=== PATIENT | male | born 1970 | race Caucasian/White ===

== ENCOUNTER 2019-10-04 17:28 | Emergency (ER) | payer OTHER, SELFPAY ==
--- NOTE | ~2019-10-04 | US_ITS ---
EXAMINATION: US venous doppler LE RT DATE: 10/04/2019 18:29 INDICATION: Left lower limb swelling TECHNIQUE: Castellon scale images without and with compression and Doppler images of the left lower extrem ity veins were obtained. COMPARISON: None FINDINGS: There is thrombosis of the left popliteal vein, peroneal trunk, and posterior tibial veins. The left common femoral vein, profunda femoral vein, femoral vein, and greater saphenous vein are pa tent. IMPRESSION: 1. . Deep venous thrombosis involving the left popliteal, posterior tibial, and peroneal veins. These findings were discussed with Radha Moore PA-C in the Emergency Department at 1837 hours on 10/03. Reviewed, dictated and finalized at location A. IMPRESSION: 1. . Deep venous thrombosis involving the left popliteal, posterior tibial, and peroneal veins. These findings were discussed with Radha Moore PA-C in [facility] Emergency Department at 1837 hours on 10/04/2019.
[2019-10-04 17:36] VITALS: BP 176/108; PULSE 88; RESP 18; TEMP 36.6; O2SAT 100
--- NOTE | 2019-10-04 17:46 | ED.LOWEXIN ---
HPI - Extremity Injury (Lower) General Chief Complaint: Extremity Injury, Lower Stated Complaint: leg swelling Time Seen by Provider: 10/04/19 17:36 Source: patient Mode of arrival: ambulatory Limitations: no limitations History of Present Illness HPI Narrative: This is a 48-year-old male that presents the emergency department for right calf pain x2 weeks. Reports swelling over the last couple of days. Denies fever, chest pain, shortness of breath, recent travel or surgery, or history of blood clots. Related Data Allergies Allergy/AdvReac Type Severity Reaction Status Date / Time CLOPIDOGREL BISULFATE Allergy Unknown Uncoded 09/27/19 09:41 Review of Systems Review of Systems: Narrative: CONSTITUTIONAL: Denies fever CARDIOVASCULAR: Reports edema. Denies chest pain RESPIRATORY: Denies dyspnea. MUSCULOSKELETAL: Reports myalgia. All systems reviewed & are unremarkable except as noted in HPI and below PMFSH Social History Social History (System 09/27/19 @ 09:41 by Steffi Biggs) Smoking status: Never smoker Alcohol intake: current Exam Narrative: Exam Narrative: GENERAL: Well-appearing, well-nourished, and in no acute distress. HEAD: Normocephalic, atraumatic. EYES: EOMI. EXTREMITIES: Normal range of motion. Mild edema to the right calf and into the foot. Normal DP pulses. Normal sensation SKIN: Warm, dry, no rash. NEURO: No focal deficits. Alert and oriented x3. PSYCH: Normal mood and affect Course Vital Signs Vital signs: Vital Signs Temperature 97.8 F 10/04/19 17:36 Pulse Rate 88 10/04/19 17:36 Respiratory Rate 18 10/04/19 17:36 Blood Pressure 176/108 H 10/04/19 17:36 Pulse Oximetry 100 10/04/19 17:36 Temperature 97.8 F 10/04/19 17:36 Pulse Rate 61 10/04/19 19:07 Respiratory Rate 18 10/04/19 19:07 Blood Pressure 159/111 H 10/04/19 19:07 Pulse Oximetry 100 10/04/19 19:07 MDM - Extremity Injury (Lower) MDM Narrative Medical decision making narrative: Patient presents to the emergency department for right lower extremity swelling and pain. Patient is afebrile and nontoxic-appearing. Blood pressure elevated to 150s-170s/100s while in the ED. Otherwise vitals are normal. CBC and metabolic panel without acute changes. Venous doppler of the right lower extremity shows a DVT in the popliteal, posterior tibial and peroneal veins. Patient denies any chest pain or shortness of breath. Oxygen saturation has remained normal on room air. Patient updated on case findings. Spoke with patient's primary about work-up will follow-up in clinic. Patient will be started on Xarelto. Patient is stable and felt appropriate for further outpatient evaluation. He was given warnings to return to the ER Lab Data Attestation: I reviewed the patient's lab results. Result diagrams: 10/04/19 18:28 10/04/19 18:28 Labs: Lab Results 10/04/19 10/04/19 10/04/19 Range/Units 18:28 18:28 18:28 WBC 8.1 (4.5-10.0) K/mm3 RBC 5.41 (4.6-6.20) M/mm3 Hgb 15.7 (14.0-18.0) g/dL Hct 46.4 (42.0-52.0) % MCV 85.8 (80-100) fl MCH 29.0 (26-34) pg MCHC 33.8 (32-36) g/dl RDW 12.2 (11.5-14.5) % Plt Count 374 (150-375) k/mm3 MPV 9.6 (7.4-10.4) fl Immature Gran % (Auto) 0.2 (0-0.5) % Neut % (Auto) 72.9 (45.5-73.1) % Lymph % (Auto) 16.6 L (18.3-44.2) % [place] % (Auto) 7.1 (2.6-8.5) % Eos % (Auto) 2.6 (0-4.4) % Baso % (Auto) 0.6 (0.2-1.2) % Lymph # (Auto) 1.35 (0.9-3.2) K/mm3 [place] # (Auto) 0.6 (0.1-0.6) K/mm3 Eos # (Auto) 0.2 (0-0.3) K/mm3 Baso # (Auto) 0.1 (0.0-0.1) K/mm3 Abs Immat Gran (auto) 0.02 (0.00-0.031) K/mm3 Absolute Neuts (auto) 5.9 (1.3-6.7) K/mm3 Absolute Nucleated RBC 0.0 (0.0-0.012) K/mm3 Nucleated RBC % 0.0 (0.0-0.2) % PT 12.6 (11.1-14.7) Seconds INR 1.0 APTT 27.1 (22.3-36.8) SECONDS Sodium 136 L (137-145) mmol/L [place]
--- NOTE | 2019-10-04 18:16 | PC.NURSE ---
Patient taken to US prior to blood draw attempt, labs will be draw when patient returns to room
[2019-10-04 18:38] LABS: Basophils Absolute Auto 0.1 K/mm3 (0.0-0.1); Basophils Percent Auto 0.6 % (0.2-1.2); Eosinophils Absolute Auto 0.2 K/mm3 (0-0.3); Eosinophils Percent Auto 2.6 % (0-4.4); Hematocrit 46.4 % (42.0-52.0); Hemoglobin 15.7 g/dL (14.0-18.0); Immature Granulocyte Absolute 0.02 K/mm3 (0.00-0.031); Immature Granulocyte Percent A 0.2 % (0-0.5); Lymphocytes Absolute Auto 1.35 K/mm3 (0.9-3.2); Lymphocytes Percent Auto 16.6 % (18.3-44.2); Mean Corpuscular HGB Conc 33.8 g/dl (32-36); Mean Corpuscular Volume 85.8 fl (80-100); Mean Platelet Volume 9.6 fl (7.4-10.4); Monocytes Absolute Auto 0.6 K/mm3 (0.1-0.6); Monocytes Percent Auto 7.1 % (2.6-8.5); Neutrophils Absolute Auto 5.9 K/mm3 (1.3-6.7); Neutrophils Percent Auto 72.9 % (45.5-73.1); Platelet Count Result 374 k/mm3 (150-375); Red Blood Count 5.41 M/mm3 (4.6-6.20); Red Cell Distribution Width 12.2 % (11.5-14.5); White Blood Count 8.1 K/mm3 (4.5-10.0)
[2019-10-04 18:49] LABS: Blood Urea Nitrogen 12 mg/dL (9-20); Carbon Dioxide 34 mmol/L (22-30); Chloride 100 mmol/L (98-107); Estimated CRCL calculation 73 ml/min; Estimated Glomerular Filt Rate > 60; Glucose 110 mg/dL (75-110); Partial Thromboplastin Time 27.1 SECONDS (22.3-36.8); Potassium 4.1 mmol/L (3.4-5.0); Prothrombin Time 12.6 Seconds (11.1-14.7); Sodium 136 mmol/L (137-145)
[2019-10-04 18:58] LABS: NT Pro B Type Natriuretic Pept 189 PG/ML (5-100)
[2019-10-04 19:07] VITALS: BP 159/111; PULSE 61; RESP 18; O2SAT 100
[2019-10-04] MEDS: RIVAROXABAN 15 MG TABLET PO (20:00)
[2019-10-04 20:02] VITALS: BP 160/107; PULSE 76; RESP 18; O2SAT 100
== END 2019-10-04 20:03 | disposition home or self-care (01) ==
PROVIDERS: Physician Assistant; Emergency Provider Family Medicine; PCP Emergency Medicine
DX: I82.431 Acute embolism and thrombosis of right popliteal vein (principal)
CPT/HCPCS: 36415; 80048; 83880; 85025; 85610; 85730; 93971; 99284; A9270

== ENCOUNTER 2019-10-09 09:45 | Outpatient (CLI) | payer OTHER, SELFPAY ==
[2019-10-09 10:15] LABS: Prothrombin Time 13.2 Seconds (11.1-14.7)
== END 2019-10-09 09:46 | disposition home or self-care (01) ==
PROVIDERS: PCP Emergency Medicine; Visit Provider Emergency Medicine
DX: I82.431 Acute embolism and thrombosis of right popliteal vein (principal)
CPT/HCPCS: 36415; 85610

== ENCOUNTER 2019-10-16 07:09 | Outpatient (CLI) | payer OTHER, SELFPAY ==
[2019-10-16 07:56] LABS: INR 1.1; Prothrombin Time 13.8 Seconds (11.1-14.7)
== END 2019-10-16 07:10 | disposition home or self-care (01) ==
PROVIDERS: PCP Emergency Medicine; Visit Provider Emergency Medicine
DX: I82.431 Acute embolism and thrombosis of right popliteal vein (principal)
CPT/HCPCS: 36415; 85610

== ENCOUNTER 2019-10-16 15:46 | Observation (INO) | payer OTHER, SELFPAY ==
--- NOTE | ~2019-10-16 | CT_ITS ---
EXAMINATION: CTA chest PE protocol DATE: 10/16/2019 16:52 CDT INDICATION: Recent DVT. Chest pain. TECHNIQUE: Computed tomographic angiography (CTA) of the chest was performed with 100 mL Omnipaque-35 0 intravenous contrast. The dose-length product was 321.27 mGy-cm. Maximum intensity projection 3D-re constructions of the aorta and other arteries were constructed by the technologist on a separate work station. Automated exposure control and iterative reconstruction technique were employed. COMPARISON: Venous Doppler dated 10/04/2019. FINDINGS: Heart size normal. Study is technically adequate pulmonary embolism and right lower lobe se gmental and subsegmental pulmonary arteries. No evidence for aortic aneurysm or dissection. No signif icant pleural or pericardial effusion. Bibasilar dependent atelectasis. No endobronchial lesions. No focal airspace consolidation. No pneumothorax. Mild thoracic spondylosis. IMPRESSION: 1. Pulmonary embolism involving right lower lobe segmental and subsegmental pulmonary arteries, small thrombus burden. Dr. Koch discussed with Dr. Mansoor De Paz at 10/16/2019 16:56 CDT. Reviewed, dictated and finalized at location A. IMPRESSION: 1. Pulmonary embolism involving right lower lobe segmental and subsegmental pul monary arteries, small thrombus burden. Dr. Koch discussed with Dr. Mansoor De Paz at 10/16/2019 16:56 CDT.
--- NOTE | 2019-10-16 15:46 | ECG_ITS ---
Measurements Intervals Omega Rate: 76 P: 53 NE: 148 QRS: 3 QRSD: 96 T: 44 QT: 371 QTc: 419 Interpretive Statements SINUS RHYTHM DELAYED PRECORDIAL R/S TRANSITION BASELINE ARTIFACT- I, III, AVL, AVF, V6 BORDERLINE ECG Electronically Signed On 10-16-2019 16:12:19 CDT by Rosalio Hudson D.O.
[2019-10-16 15:48] VITALS: BP 156/106; PULSE 87; RESP 16; TEMP 36.6; O2SAT 100
[2019-10-16 16:01] LABS: Basophils Absolute Auto 0.1 K/mm3 (0.0-0.1); Basophils Percent Auto 0.8 % (0.2-1.2); Eosinophils Absolute Auto 0.2 K/mm3 (0-0.3); Eosinophils Percent Auto 2.8 % (0-4.4); Hematocrit 50.2 % (42.0-52.0); Hemoglobin 16.8 g/dL (14.0-18.0); Immature Granulocyte Absolute 0.03 K/mm3 (0.00-0.031); Immature Granulocyte Percent A 0.4 % (0-0.5); Lymphocytes Absolute Auto 1.92 K/mm3 (0.9-3.2); Lymphocytes Percent Auto 26.5 % (18.3-44.2); Mean Corpuscular HGB Conc 33.5 g/dl (32-36); Mean Corpuscular Hemoglobin 29.3 pg (26-34); Mean Corpuscular Volume 87.6 fl (80-100); Mean Platelet Volume 10.6 fl (7.4-10.4); Monocytes Absolute Auto 0.6 K/mm3 (0.1-0.6); Neutrophils Absolute Auto 4.5 K/mm3 (1.3-6.7); Neutrophils Percent Auto 61.5 % (45.5-73.1); Platelet Count Result 343 k/mm3 (150-375); Red Blood Count 5.73 M/mm3 (4.6-6.20); Red Cell Distribution Width 12.4 % (11.5-14.5); White Blood Count 7.3 K/mm3 (4.5-10.0)
[2019-10-16 16:10] LABS: INR 1.1; Prothrombin Time 13.6 Seconds (11.1-14.7)
[2019-10-16 16:13] LABS: D Dimer 0.51 ug/mL (<0.48)
[2019-10-16 16:14] LABS: Blood Urea Nitrogen 19 mg/dL (9-20); Calcium 9.6 mg/dL (8.4-10.2); Carbon Dioxide 31 mmol/L (22-30); Chloride 98 mmol/L (98-107); Estimated CRCL calculation 58 ml/min; Estimated Glomerular Filt Rate 54; Glucose 117 mg/dL (75-110); Sodium 138 mmol/L (137-145)
[2019-10-16 16:25] LABS: Troponin I < 0.012 ng/mL (0.000-0.034)
--- NOTE | 2019-10-16 17:30 | ED.SOB ---
HPI - SOB/Dyspnea General Chief Complaint: Extremity Problem,Nontraumatic Stated Complaint: chest pain and SOB Time Seen by Provider: 10/16/19 16:54 Source: patient Mode of arrival: ambulatory Limitations: no limitations History of Present Illness HPI Narrative: This is a 40-year-old male who presents emergency department for shortness of breath x1 week. Worse with exertion and at night. Was recently diagnosed with a DVT in his right lower extremity. Was started on warfarin for this and has had to have his dose increased due to non-therapeutic INR. Also reports some pleuritic chest pain. Denies fever or cough. Related Data Allergies Allergy/AdvReac Type Severity Reaction Status Date / Time clopidogrel Allergy Unknown Verified 10/16/19 18:16 CLOPIDOGREL BISULFATE Allergy Unknown Uncoded 10/16/19 18:16 Review of Systems Review of Systems: Narrative: CONSTITUTIONAL: Denies feve CARDIOVASCULAR: Reports chest pain, and edema. RESPIRATORY: Reports dyspnea. Denies cough All systems reviewed & are unremarkable except as noted in HPI and below PMFSH Social History Social History Smoking status: Never smoker Alcohol intake: current Exam Narrative: Exam Narrative: GENERAL: Well-appearing, well-nourished, and in no acute distress. HEAD: Normocephalic, atraumatic. EYES: EOMI. CHEST: Clear to auscultation. No respiratory distress. No wheezes rales or rhonchi HEART: Regular rate and rhythm. No murmur heard. Normal peripheral pulses. EXTREMITIES: Normal range of motion. No edema. SKIN: Warm, dry, no rash. NEURO: No focal deficits. Alert and oriented x3. PSYCH: Normal mood and affect Course Consultations Consultation #1: Spoke with hospitalist about patient and work-up who accepts admission Date: 10/16/19 Time: 18:29 Vital Signs Vital signs: Vital Signs Temperature 97.8 F 10/16/19 15:48 Pulse Rate 87 10/16/19 15:48 Respiratory Rate 16 10/16/19 15:48 Blood Pressure 156/106 H 10/16/19 15:48 Pulse Oximetry 100 10/16/19 15:48 Temperature 97.8 F 10/16/19 15:48 Pulse Rate 87 10/16/19 15:48 Respiratory Rate 16 10/16/19 15:48 Blood Pressure 156/106 H 10/16/19 15:48 Pulse Oximetry 100 10/16/19 15:48 MDM - SOB/Dyspnea MDM Narrative Medical decision making narrative: Patient presents the emergency department for shortness of breath x1 week. He is afebrile and nontoxic-appearing. Oxygen saturation has remained normal on room air. Patient recently diagnosed with right lower extremity DVT. INR has been subtherapeutic. CBC without acute changes. Metabolic panel with mild elevation in creatinine from baseline. Baseline appears to be closer to 1.1 or 1.2. He is 1.4 today. GFR also mildly decreased to 54. Troponin is not elevated. CTA of the chest shows pulmonary embolism involving the right lower lobe segmental and subsegmental pulmonary arteries with small thrombus burden. Patient will be admitted for further treatment and observation. Given a dose of Lovenox in the ED. Will be started on subcutaneous Lovenox inpatient. Spoke with hospitalist about patient and work-up who accepts admission Lab Data Attestation: I reviewed the patient's lab results. Result diagrams: 10/16/19 15:52 10/16/19 15:52 Labs: Lab Results 10/16/19 10/16/19 10/16/19 Range/Units 15:52 15:52 15:52 WBC 7.3 (4.5-10.0) K/mm3 RBC 5.73 (4.6-6.20) M/mm3 Hgb 16.8 (14.0-18.0) g/dL Hct 50.2 (42.0-52.0) % MCV 87.6 (80-100) fl MCH 29.3 (26-34) pg MCHC 33.5 (32-36) g/dl RDW 12.4 (11.5-14.5) % Plt Count 343 (150-375) k/mm3 MPV 10.6 H (7.4-10.4) fl Immature Gran % (Auto) 0.4 (0-0.5) % Neut % (Auto) 61.5 (45.5-73.1) % Lymph % (Auto) 26.5 (18.3-44.2) % [place] % (Auto) 8.0 (2.6-8.5) % Eos % (Auto) 2.8 (0-4.4) % Baso % (Auto) 0.8 (0.2-1.2) % Lymph # (Auto) 1.92
[2019-10-16] MEDS: ENOXAPARIN 100 MG/ML SYRINGE 85 MG SUB-Q (18:16)
[2019-10-16] MEDS: SODIUM CHLORIDE 0.9% IV 500 ML 999 ML IV CONT (18:50)
[2019-10-16 18:53] VITALS: BP 150/113; PULSE 76; RESP 16; O2SAT 100
[2019-10-16 19:40] VITALS: BP 150/93; PULSE 64; RESP 18; TEMP 36.7; O2SAT 97; BMI 27.1
--- NOTE | 2019-10-16 19:56 | ADMGEN ---
This patient, Dakota Richardson, was admitted to 3 [facility] Surg Room 302-01. Patient/family oriented to hospital policies and general routines including ID bracelet, bed and alarms, visiting hours, pain management, procedures, bathroom and other care routines, personal items, smoking policy, room service/diet, and visiting hours. Valuables list has been completed. Information on how to activate the Rapid Response Team has been discussed. Patient/Family are encouraged to report perceived risks to care and to ask questions if they do not understand what they are told or what they should do.
[2019-10-16 22:00] VITALS: BP 143/89; PULSE 60; RESP 18; TEMP 36.7; O2SAT 100
--- NOTE | 2019-10-16 22:30 | PM.IMHP ---
H&P: HPI History of Present Illness Chief complaint: PE Narrative: Dakota Richardson is a 48 year old male who was seen in the emergency room on 10/04/2019 and found to have a DVT in his right calf the patient was prescribed Xarelto and was told to wear compression stockings. He was told to elevate his leg as well. And follow-up with his primary care doctor. The patient stated that he was also short of breath at that time and having difficulty sleeping due to the shortness of breath. The patient was not able to get Xarelto and had to do Coumadin. His INR was not therapeutic and the patient had to increase his Coumadin. Patient said that he is very short of breath with exertion and when he is sleeping at night he cannot lie flat and has to sleep with a fan because he is so short of breath. The patient returned back to the emergency room due to his shortness of breath. He states he could not take a deep breath. And he has pain in the right lower quadrant CT was read as pulmonary embolism involving right lower lobe segmental and subsegmental pulmonary arteries small thrombus burden. Patient was given subcu Lovenox. And IV fluids in the emergency room his D-dimer was found to be 0.51. And his INR was only 1.1. Date of service 10/16/2019 Review of Systems Review of Systems: All systems reviewed & are unremarkable except as noted in HPI and below Constitutional: Constitutional: Reports as per HPI and Reports no additional constitutional complaints Eyes: Eyes: Reports as per HPI and Reports no additional eye complaints ENT: Reports system reviewed and no additional complaints, except as documented and Reports Normal hearing present Cardiovascular: Cardiovascular: Reports no additional cardiovascular complaints Respiratory: Respiratory: Reports no additional respiratory complaints and Reports no additional respiratory complaints Gastrointestinal: Gastrointestinal: Reports as per HPI and Reports no additional gastrointestinal complaints Musculoskeletal: Musculoskeletal: Reports no additional musculoskeletal complaints Integumentary/Breasts: Skin/Breast: Reports system reviewed and no additional complaints, except as docu and Reports as per HPI Neurologic: Reports system reviewed and no additional complaints, except as documented, Reports as per HPI and Reports Normal hearing present Psychiatric: Psychiatric: Reports no additional psychiatric complaints and Reports as per HPI Endocrine: Endocrine: Reports no additional endocrine complaints Hematologic/Lymphatic: Hematologic/Lymphatic: Reports no additional hematologic/lymphatic complaints Allergic/Immunologic: Allergic/Immunologic: Reports no additional allergic/immunologic complaints [facility] Past Medical History Medical History (Updated 10/16/19 @ 22:35 by Danielle Santoyo NP) Hypertension Vitamin D deficiency disease Surgical History Surgical History (Updated 10/16/19 @ 22:35 by Danielle Santoyo NP) History of tonsillectomy Hx of cholecystectomy Family History Family History (Updated 10/16/19 @ 22:38 by Danielle Santoyo NP) Sibling DVT (deep venous thrombosis) Father Diabetes mellitus Other Family history of malignant neoplasm of skin Social History Social History Smoking status: Never smoker Alcohol intake: current Drinks per week: 18 Substance use: never Spiritual care concerns: No Meds Home Medications and Allergies Home Medications Medication Instructions Recorded Confirmed Type cholecalciferol (vitamin D3) 50 2,000 unit PO DAILY #30 tablet 05/24/19 10/16/19 Rx mcg (2,000 unit) tablet warfarin 5 mg tablet 5 mg PO DAILY #30 tablet 10/07/19 10/16/19 Rx hydrochlorothiazide 25 mg tablet 25 mg PO DAILY #30 tablet 10/14/19 10/16/19 Rx amlodipine 5 mg PO DAILY 10/16/19 10/16/19 History losartan 100 mg PO DAILY 10/16/19 10/16/19 History Allergies Allergy/AdvReac Type Severity
[2019-10-17] VITALS: PULSE 52
--- NOTE | 2019-10-17 | ECHO_ITS ---
Patient Info Name: Dakota Richardson Age: 48 years : 1970 Gender: Male Ht: 69 in Wt: 183 lbs BSA: 2.03 m2 HR: 64 bpm BP: 142 / 99 mmHg Technical Quality: Good Exam Date: 10/17/2019 11:33 AM Exam Location: [facility] Pulmonary Exam Room: [facility] [place] Patient Status: Inpatient Admit Date: 10/16/2019 Staff Ordering Physician: Danielle Santoyo NP Safety And Security Manager: Nancy Gusman RDCS Attending Provider: Florecita Hoffman PA-C Referring Physician: Yarelis ABREU; Exam Type: CA echo doppler color flow Study Info Indications - PE DVT SOB Complete two-dimensional, color flow and Doppler transthoracic echocardiogram is performed with contrast to opacify the left ventricle and to improve the deliniation of the left ventricle endocardial borders. Summary 1. Left ventricular chamber dimension is mildly enlarged. 2. Left ventricular systolic function is mildly reduced, estimated at 45-50%. 3. Left ventricular septal wall motion is abnormal with septal motion related to bundle branch block. 4. Lateral wall is hypokinetic. 5. The left ventricular diastolic function is grade I diastolic dysfunction. 6. E/e' 8 is minimally elevated. 7. There is mild mitral valve regurgitation. 8. There is mild tricuspid valve regurgitation. 9. No pulmonary hypertension, estimated pulmonary arterial systolic pressure is 24 mmHg. Left Ventricle Lateral wall is hypokinetic. E/e' 8 is minimally elevated. Left ventricular chamber dimension is mildly enlarged. Left ventricular systolic function is mildly reduced, estimated at 45-50%. Left ventricular septal wall motion is abnormal with septal motion related to bundle branch block. The left ventricular diastolic function is grade I diastolic dysfunction. Right Ventricle Right ventricular chamber dimension is normal. Right ventricular systolic function is normal. Left Atria Left atrial chamber dimension is normal. Right Atria Right atrial chamber dimension is normal. Aortic Valve The aortic valve is trileaflet. There is no aortic valve stenosis. There is no aortic valve regurgitation. Pulmonic Valve There is trace pulmonic regurgitation. Mitral Valve There is no mitral valve stenosis. There is mild mitral valve regurgitation. Tricuspid Valve There is mild tricuspid valve regurgitation. No pulmonary hypertension, estimated pulmonary arterial systolic pressure is 24 mmHg. Pericardium/Pleural There is no pericardial effusion. Inferior Vena Cava Normal inferior vena cava with >50% collapse upon inspiration consistent with normal right atrial pressure, 5 mmHg. Aorta The aortic root size at the sinus of Valsalva is normal. Left Ventricular Outflow Tract Name Value Normal LVOT 2D LVOT Diameter 2.1 cm LVOT Doppler LVOT Peak Gradient 4 mmHg LVOT Mean Gradient 2 mmHg LVOT VTI 18 cm LVOT VTI/AV VTI Ratio 0.9 LVOT Stroke Volume 61 ml LVOT CO 13.3 l/min LVOT CI
[2019-10-17 04:00] VITALS: PULSE 55
[2019-10-17] MEDS: ENOXAPARIN 100 MG/ML SYRINGE 85 MG SUB-Q (05:35)
[2019-10-17 06:00] VITALS: BP 142/99; PULSE 64; RESP 18; TEMP 36.4; O2SAT 99
[2019-10-17 06:21] LABS: Basophils Percent Auto 0.7 % (0.2-1.2); Eosinophils Absolute Auto 0.2 K/mm3 (0-0.3); Eosinophils Percent Auto 2.5 % (0-4.4); Hematocrit 49.2 % (42.0-52.0); Hemoglobin 16.4 g/dL (14.0-18.0); Immature Granulocyte Absolute 0.01 K/mm3 (0.00-0.031); Immature Granulocyte Percent A 0.2 % (0-0.5); Lymphocytes Absolute Auto 1.87 K/mm3 (0.9-3.2); Lymphocytes Percent Auto 31.7 % (18.3-44.2); Mean Corpuscular HGB Conc 33.3 g/dl (32-36); Mean Corpuscular Hemoglobin 29.3 pg (26-34); Mean Platelet Volume 10.3 fl (7.4-10.4); Monocytes Absolute Auto 0.5 K/mm3 (0.1-0.6); Neutrophils Absolute Auto 3.4 K/mm3 (1.3-6.7); Neutrophils Percent Auto 56.9 % (45.5-73.1); Platelet Count Result 293 k/mm3 (150-375); Red Blood Count 5.59 M/mm3 (4.6-6.20); Red Cell Distribution Width 12.5 % (11.5-14.5); White Blood Count 5.9 K/mm3 (4.5-10.0)
[2019-10-17 06:35] LABS: INR 1.3; Prothrombin Time 15.4 Seconds (11.1-14.7)
[2019-10-17 06:43] LABS: Alanine Aminotransferase 19 U/L (4-50); Albumin Level 4.4 g/dL (3.5-5.1); Alkaline Phosphatase 70 U/L (38-126); Aspartate Amino Transferase 25 U/L (17-59); Bilirubin,Total 0.6 mg/dL (0.2-1.3); Blood Urea Nitrogen 16 mg/dL (9-20); CRP < 0.5 mg/dL (<1.0); Calcium 9.3 mg/dL (8.4-10.2); Carbon Dioxide 32 mmol/L (22-30); Chloride 98 mmol/L (98-107); Estimated CRCL calculation 67 ml/min; Estimated Glomerular Filt Rate > 60; Glucose 102 mg/dL (75-110); Magnesium 2.1 mg/dL (1.6-2.3); Sodium 137 mmol/L (137-145)
[2019-10-17 08:00] VITALS: PULSE 68
[2019-10-17] MEDS: hydroCHLOROthiazide 25 MG TABLET PO (09:02)
[2019-10-17] MEDS: CHOLECALCIFEROL 1,000 UNIT TABLET 2000 UNITS PO (09:02)
[2019-10-17] MEDS: LOSARTAN POTASSIUM 100 MG TABLET PO (09:02)
[2019-10-17] MEDS: AMLODIPINE BESYLATE 5 MG TABLET PO (09:02)
[2019-10-17 12:00] VITALS: PULSE 73
[2019-10-17 14:00] VITALS: BP 130/80; PULSE 64; RESP 18; TEMP 36.4; O2SAT 100
--- NOTE | 2019-10-17 14:18 | PM.DS ---
DS: Admitting Diagnosis Admitting Diagnosis Admitting Diagnosis: Single subsegmental pulmonary embolism without acute cor pulmonale DS: Discharge Diagnosis Discharge Diagnosis (1) Pulmonary embolism: Qualifiers: Pulmonary embolism type: single subsegmental (without acute cor pulmonale) Qualified Code(s): I26.93 - Single subsegmental pulmonary embolism without acute cor pulmonale Code(s): I26.99 - Other pulmonary embolism without acute cor pulmonale Status: Acute Assessment and Plan: Acute pulmonary embolism found on CTA of chest upon arrival to the emergency room. Patient was started on Lovenox injections and continued on his Coumadin orally for anticoagulation. Echocardiogram showed no signs of right heart strain from pulmonary embolism. Patient is feeling much better at this time. His INR this morning was 1.3, which is improved with the increase in his Coumadin dose. He will be discharged on Lovenox 85 mg q.12 hours and continue taking Coumadin 10 mg daily Will have him recheck his INR on Monday and follow-up with his primary care provider on Monday or Monday. Will keep him off of work until he follows up with his primary care provider is cleared to return Patient understands and agrees the plan all questions answered (2) DVT of lower extremity (deep venous thrombosis): Qualifiers: Affected thrombotic vein of extremity: other lower extremity vein Chronicity: acute Laterality: left Qualified Code(s): I82.492 - Acute embolism and thrombosis of other specified deep vein of left lower extremity Code(s): I82.409 - Acute embolism and thrombosis of unspecified deep veins of unspecified lower extremity Status: Acute Assessment and Plan: Diagnosed 10/05/2019 and was on Coumadin which was not treating his DVT since he was subtherapeutic. See above under PE. (3) Systolic congestive heart failure: Code(s): I50.20 - Unspecified systolic (congestive) heart failure Status: Acute Assessment and Plan: Had an echo completed on the patient which found his EF is slightly reduced at 45-50%, with mild enlargement of his LV, Left ventricular septal wall motion is abnormal with septal motion related to bundle branch block and Lateral wall is hypokinetic. I called Dr. Hudson who read the patient's echocardiogram and informed him of his history. Dr. Hudson does not believe any of these heart changes are related to his underlying PE. He does not feel any medication adjustments are necessary at this time since his EF is only slightly reduced. He believes the patient should follow-up as an outpatient for further cardiac workup once his PE has resolved. Will have him call Dr. Hudson in follow-up in a few weeks for further evaluation. Patient's initial troponin on arrival to the ER was normal at less than 0.012 Informed the patient of these findings and he understands and agrees with the plan. Informed the patient that if his shortness of breath with exertion is not any better by Monday with his Lovenox treatment for PE that he needs follow-up with primary care provider in some of his dyspnea on exertion could be related to underlying coronary artery disease. (4) Hypertension: Qualifiers: Hypertension type: essential hypertension Qualified Code(s): I10 - Essential (primary) hypertension Code(s): I10 - Essential (primary) hypertension Status: Chronic Assessment and Plan: Blood pressures morning was 142/99 before taking his home medications. Continue with Norvasc, hydrochlorothiazide, Cozaar. Have him check his blood pressure daily and follow-up with primary care provider DS: Summary Hospital Course Reason for hospitalization: Patient is a 48-year-old man with a hi
[2019-10-22 12:52] LABS: Lipoprotein A 41 nmol/L (<75)
[2019-10-22 21:13] LABS: Hexagonal Phase Confirm Negative (Negative); Lupus dRVVT 1:1 Mix Interpreta Not Indicated; Lupus dRVVT Screen 29 sec (<=45); PTT-LA Screen 42 sec (<=40)
== END 2019-10-17 15:20 | disposition home or self-care (01) ==
LOC: ANHED 18:23 → ANH3MEDSUR 18:39
PROVIDERS: Nurse Practitioner; Admitting Provider Internal Medicine; Emergency Provider Family Medicine; PCP Emergency Medicine; Visit Provider Family Medicine
DX: I26.93 Single subsegmental thrombotic pulmonary embolism without acute cor pulmonale (principal); I82.491 Acute embolism and thrombosis of other specified deep vein of right lower extremity; I50.20 Unspecified systolic (congestive) heart failure; I11.0 Hypertensive heart disease with heart failure; Z79.01 Long term (current) use of anticoagulants
CPT/HCPCS: 36415; 71275; 80048; 80053; 81241; 81291; 83695; 83735; 84484; 85025; 85380; 85598; 85610; 85613; 85730; 86140; 93005; 93306; 96360; 96372; 99285; A9270; G0378; J1650; J7040; Q9967

== ENCOUNTER 2019-10-25 08:30 | Outpatient (CLI) | payer OTHER, SELFPAY ==
[2019-10-25 08:55] LABS: INR 1.6; Prothrombin Time 18.6 Seconds (11.1-14.7)
== END 2019-10-25 08:31 | disposition home or self-care (01) ==
PROVIDERS: PCP Emergency Medicine; Visit Provider Emergency Medicine
DX: I26.99 Other pulmonary embolism without acute cor pulmonale (principal); I82.409 Acute embolism and thrombosis of unspecified deep veins of unspecified lower extremity
CPT/HCPCS: 36415; 85610

== ENCOUNTER 2019-11-07 09:13 | Outpatient (CLI) | payer OTHER, SELFPAY ==
[2019-11-07 10:01] LABS: Cholesterol 240 mg/dL (0-200); HDL Direct 49 mg/dL; Triglycerides 139 mg/dL (<150)
[2019-11-07 10:12] LABS: LDL Cholesterol Direct 146 mg/dL
== END 2019-11-07 09:14 | disposition home or self-care (01) ==
PROVIDERS: PCP Emergency Medicine; Visit Provider Internal Medicine Cardiovascular Disease
DX: E78.5 Hyperlipidemia, unspecified (principal)
CPT/HCPCS: 36415; 80061

== ENCOUNTER 2019-11-07 11:58 | Outpatient (CLI) | payer OTHER, SELFPAY ==
[2019-11-12 05:11] LABS: Homocysteine 12.4 umol/L (<11.4)
== END 2019-11-07 11:59 | disposition home or self-care (01) ==
PROVIDERS: PCP Emergency Medicine; Visit Provider Internal Medicine Hematology & Oncology
DX: D68.69 Other thrombophilia (principal)
CPT/HCPCS: 36415; 83090

== ENCOUNTER 2019-11-10 20:35 | Emergency (ER) | payer OTHER, SELFPAY ==
--- NOTE | ~2019-11-10 | CT_ITS ---
EXAMINATION: CT BRAIN W/O DATE: 11/10/2019 20:51 INDICATION: Dizziness and weakness. TECHNIQUE: Computed tomography (CT) of the head was performed without intravenous contrast. The dose- length product was 605.33 mGy-cm. Automated exposure control and iterative reconstruction technique w ere employed. COMPARISON: CT dated 04/17/2014 FINDINGS: Normal brain parenchymal volume for age. Normal lezama-white differentiation. No acute intrac ranial hemorrhage, infarction, mass or mass effect. No ventriculomegaly or midline shift. Midline sagittal images demonstrate a normal corpus callosum, c raniovertebral junction and sella turcica. Basilar cisterns are patent. Paranasal sinuses and mastoids are pneumatized. No depressed skull fractures. IMPRESSION: 1. No acute intracranial abnormality. Reviewed, dictated and finalized at location A.
[2019-11-10 20:35] VITALS: BP 173/94; PULSE 78; RESP 20; TEMP 36.6; O2SAT 97
--- NOTE | 2019-11-10 20:38 | ED.WEAKNESS ---
HPI - Weakness General Chief complaint: Suspected CVA Stated complaint: EMS Arrival Time Seen by Provider: 11/10/19 20:40 Source: patient, EMS and RN notes reviewed Mode of arrival: EMS Limitations: no limitations History of Present Illness HPI Narrative: Patient states that he was at a neighbor's house and he only had 2 or 3 sips of a beer. He says that he is not drinking alcohol and 6 weeks because he has been on blood thinners. He then became dizzy and felt like he was weak on his left side. He does at the history of TIA, alcohol abuse. He was put on blood thinners for DVT in his right leg ache which then became a pulmonary embolism. He is currently on Coumadin. Currently denies any chest pain or shortness of breath. MD Complaint: focal weakness (left side) Onset (ago): minute(s) (35) Duration: constant Location: LUE and LLE Migration: none Severity: moderate Relieving factors: none Associated symptoms: denies other symptoms Related Data Home Medications Medication Instructions Recorded Confirmed amlodipine [Norvasc] 5 mg PO DAILY 10/16/19 11/10/19 losartan 100 mg PO DAILY 10/16/19 11/10/19 aspirin [Aspir-81] 81 mg PO DAILY 11/10/19 11/10/19 cholecalciferol (vitamin D3) [D3 2,000 unit PO DAILY 11/10/19 11/10/19 DOTS] Allergies Allergy/AdvReac Type Severity Reaction Status Date / Time clopidogrel Allergy Unknown Unknown Verified 11/07/19 08:26 CLOPIDOGREL BISULFATE Allergy Unknown Unknown Uncoded 11/07/19 08:26 [facility] Family History Family History Sibling DVT (deep venous thrombosis) Father Diabetes mellitus Other Family history of malignant neoplasm of skin Social History Social History Smoking status: Never smoker Alcohol intake: current Drinks per week: 18 Substance use: never Gender identity (if verbalized by the patient): Male Sexual Orientation (if Verbalized by the Patient): Straight or Heterosexual Spiritual care concerns: No Course Vital Signs Vital signs: Vital Signs Temperature 36.6 C 11/10/19 20:35 Pulse Rate 78 11/10/19 20:35 Respiratory Rate 20 11/10/19 20:35 Blood Pressure 173/94 H 11/10/19 20:35 Pulse Oximetry 97 11/10/19 20:35 Temperature 36.4 C 11/10/19 22:20 Pulse Rate 78 11/10/19 22:20 Respiratory Rate 18 11/10/19 22:20 Blood Pressure 140/72 11/10/19 22:20 Pulse Oximetry 98 11/10/19 22:20 MDM - Weakness Differential Diagnosis Differential diagnosis: Likely dehydration and other (CVA, TIA) Lab Data Attestation: I reviewed the patient's lab results. Result diagrams: 11/10/19 20:55 11/10/19 20:55 Labs: Lab Results 11/10/19 11/10/19 11/10/19 Range/Units 20:55 20:55 20:55 WBC 6.5 (4.8-10.8) K/mm3 RBC 5.25 (4.70-6.10) M/mm3 Hgb 15.2 (14.0-18.0) g/dL Hct 45.9 (40.0-54.0) % MCV 87.4 (78.0-102.0) fL MCH 29.0 (27.0-31.0) pg MCHC 33.1 (32.0-36.0) g/dL RDW 12.4 (11.6-14.4) % Plt Count 267 (150-420) K/mm3 MPV 10.4 (8.7-11.0) fl Immature Gran % (Auto) 0.3 H (0.0-0.0) % Neut % (Auto) 53.3 (50.0-70.0) % Lymph % (Auto) 35.8 (18.0-42.0) % [place] % (Auto) 7.3 (2.0-11.0) % Eos % (Auto) 2.5 (1.0-6.0) % Baso % (Auto) 0.8 (0.0-1.0) % Lymph # (Auto) 2.31 (1.10-4.50) K/mm3 [place] # (Auto) 0.47 (0.10-0.90) K/mm3 Eos # (Auto) 0.16 (0.02-0.50) K/mm3 Baso # (Auto) 0.05 (0.00-0.10) K/mm3 Abs Immat Gran (auto) 0.02 H (0.00-0.00) K/mm3 Absolute Neuts (auto) 3.5 (1.7-7.2) K/mm3 Absolute Nucleated RBC 0.00 (0.00-0.00) K/mm3 Nucleated RBC % 0.0 (0-0.0) % PT 30.4 H (9.64-11.0) Seconds INR 3.1 Sodium 136 L (137-145) mmol/L Potassium 3.6 (3.4-5.0) mmol/L Chloride 100 (98-107) mmol/L Carbon Dioxide 30 (21-32) mmol/L Anion Gap 9.6 (7-16) mmol/L BUN 13 (7
[2019-11-10 21:04] LABS: Basophils Absolute Auto 0.05 K/mm3 (0.00-0.10); Basophils Percent Auto 0.8 % (0.0-1.0); Eosinophils Absolute Auto 0.16 K/mm3 (0.02-0.50); Eosinophils Percent Auto 2.5 % (1.0-6.0); Hematocrit 45.9 % (40.0-54.0); Hemoglobin 15.2 g/dL (14.0-18.0); Immature Granulocyte Absolute 0.02 K/mm3 (0.00-0.00); Immature Granulocyte Percent A 0.3 % (0.0-0.0); Lymphocytes Absolute Auto 2.31 K/mm3 (1.10-4.50); Lymphocytes Percent Auto 35.8 % (18.0-42.0); Mean Corpuscular HGB Conc 33.1 g/dL (32.0-36.0); Mean Corpuscular Volume 87.4 fL (78.0-102.0); Mean Platelet Volume 10.4 fl (8.7-11.0); Monocytes Absolute Auto 0.47 K/mm3 (0.10-0.90); Monocytes Percent Auto 7.3 % (2.0-11.0); Neutrophils Absolute Auto 3.5 K/mm3 (1.7-7.2); Neutrophils Percent Auto 53.3 % (50.0-70.0); Platelet Count Result 267 K/mm3 (150-420); Red Blood Count 5.25 M/mm3 (4.70-6.10); Red Cell Distribution Width 12.4 % (11.6-14.4); White Blood Count 6.5 K/mm3 (4.8-10.8)
[2019-11-10 21:19] LABS: Alanine Aminotransferase 72 U/L (16-63); Albumin Level 4.2 g/dL (3.4-5.0); Alkaline Phosphatase 66 U/L (46-116); Aspartate Amino Transferase 23 U/L (15-37); Bilirubin,Total 0.4 mg/dL (0.00-1.00); Blood Urea Nitrogen 13 mg/dL (7-18); Calcium 9.1 mg/dL (8.5-10.1); Estimated CRCL calculation 56 ml/min; Estimated Glomerular Filt Rate 54; Glucose 99 mg/dL (70-99); INR 3.1; Prothrombin Time 30.4 Seconds (9.64-11.0); Total Protein 7.6 g/dL (6.4-8.2)
[2019-11-10 21:20] LABS: Carbon Dioxide 30 mmol/L (21-32)
[2019-11-10 21:21] LABS: Ethanol 110 mg/dL (0-6)
--- NOTE | 2019-11-10 21:30 | PC.NURSE ---
patient resting no pain. VSS. Family notified
[2019-11-10 21:36] VITALS: BP 140/88; PULSE 88; RESP 20; TEMP 36.2; O2SAT 98
--- NOTE | 2019-11-10 21:42 | PC.NURSE ---
tested reviewed, patient to be discharged, mother notified
[2019-11-10 21:51] VITALS: BP 150/72; PULSE 88; RESP 18
[2019-11-10 22:03] LABS: Anion Gap 9.6 mmol/L (7-16); Chloride 100 mmol/L (98-107); Osmolality Calculated 282 mOsm/kg (285-295); Potassium 3.6 mmol/L (3.4-5.0); Sodium 136 mmol/L (137-145)
[2019-11-10 22:20] VITALS: BP 140/72; PULSE 78; RESP 18; TEMP 36.4; O2SAT 98
--- NOTE | 2019-11-10 22:21 | PC.NURSE ---
IV D/C coban & dressing applied
== END 2019-11-10 22:20 | disposition home or self-care (01) ==
PROVIDERS: Emergency Provider Emergency Medicine
DX: R53.1 Weakness (principal); Z79.01 Long term (current) use of anticoagulants; Z79.899 Other long term (current) drug therapy
CPT/HCPCS: 36415; 70450; 80053; 80307; 85025; 85610; 99284

== ENCOUNTER 2019-11-15 06:35 | Outpatient (CLI) | payer OTHER, SELFPAY ==
--- NOTE | ~2019-11-15 | NM_ITS ---
EXAMINATION: NM shaun stress w perfusion DATE: 11/15/2019 09:02 INDICATION: Systolic congestive heart failure TECHNIQUE: Rest images were obtained following intravenous administration of 10.9 mCi Tc99m tetrofosm in (Myoview). The patient was infused intravenously with Lexiscan (Regadenoson). Then, 32.2 mCi Tc99m tetrofosmin (Myoview) was administered intravenously, and stress images were obtained. Data was chantell nstructed into short axis and horizontal and vertical long axis SPECT images. Gated SPECT images were also obtained. COMPARISON: None. FINDINGS: There is no definite reversible or fixed perfusion abnormality to suggest ischemia or infar ction. There is normal left ventricular chamber size, wall motion and ejection fraction. Left ventr icular ejection fraction measures 60%. IMPRESSION: 1. Normal myocardial perfusion at rest and during stress. 2. Left ventricular ejection fraction measuring 60%. Reviewed, dictated and finalized at location A.
--- NOTE | 2019-11-15 06:47 | EST_ITS ---
Patient Info Name: Dakota Richardson Age: 48 years : 1970 Gender: Male Ht: 69 in Wt: 196 lbs BSA: 2.10 m2 Exam Date: 11/15/2019 7:57 AM Exam Location: [facility] Stress Patient Status: Outpatient Admit Date: 11/15/2019 Staff Ordering Physician: Rosalio Hudson DO Attending Provider: Rosalio Hudson DO Exercise Technologist: Lisa Tamez RDCS Exercise Physician: Rosalio Hudson DO Exam Type: CA stress shaun w NM Study Info Indications I50.21 - Acute systolic (congestive) heart failure A regadenoson stress test was performed. Summary 1. 1. Negative lexiscan stress test for ischemic ST change by ECG criteria. 2. 2. Stable hemodynamics throughout the test. 3. 3. Nuclear scan to follow and will be reported separately. Please correlate with it. 4. 4. Patient informed of the above results. Protocol: Lexiscan Stress ECG Details Stage: REST Duration (min): 6 min : 13 sec HR (bpm): 53 SBP (mmHg): 133 DBP (mmHg): 100 Stage: REST Duration (min): 10 min : 21 sec HR (bpm): 62 SBP (mmHg): 133 DBP (mmHg): 100 Stage: STAGE 1 Duration (min): 1 min : 0 sec HR (bpm): 85 SBP (mmHg): 133 DBP (mmHg): 86 Stage: RECOVERY Duration (min): 1 min : 0 sec HR (bpm): 81 SBP (mmHg): 136 DBP (mmHg): 91 Stage: RECOVERY Duration (min): 2 min : 0 sec HR (bpm): 75 SBP (mmHg): 136 DBP (mmHg): 91 Stage: RECOVERY Duration (min): 3 min : 0 sec HR (bpm): 69 SBP (mmHg): 134 DBP (mmHg): 91 Stage: RECOVERY Duration (min): 3 min : 3 sec HR (bpm): 68 SBP (mmHg): 134 DBP (mmHg): 91 Rest HR: 62 bpm Peak HR: 87 bpm Rest Sys BP: 133 mmHg Peak Sys BP: 136 mmHg Max Pred HR: 172 bpm % Max Pred HR: 51 % Target HR: 146 bpm Max RPP: 11,832 bpm*mmHg Termination Reason: Completed protocol Cardiac Symptoms: Shortness of breath, Lightheaded/pre-syncope Total Time: 1 min : 0 sec Rest Knight BP: 100 mmHg Peak Knight BP: 91 mmHg Total Dose: 0.4 mg Resting ECG Sinus rhythm. Stress ECG No ST changes. Arrhythmias None. Report Signatures
== END 2019-11-15 06:36 | disposition home or self-care (01) ==
PROVIDERS: PCP Emergency Medicine; Visit Provider Internal Medicine Cardiovascular Disease
DX: I50.21 Acute systolic (congestive) heart failure (principal)
CPT/HCPCS: 78452; 93017; A9502; J2785

== ENCOUNTER 2019-11-20 06:55 | Outpatient (RCR) | payer OTHER, SELFPAY ==
[2019-10-11 08:29] LABS: Prothrombin Time 13.3 Seconds (11.1-14.7)
[2019-10-21 07:27] LABS: INR 1.4; Prothrombin Time 16.4 Seconds (11.1-14.7)
[2019-10-23 12:06] LABS: INR 1.6
[2019-10-28 11:24] LABS: INR 1.6
[2019-10-30 07:18] LABS: INR 1.2; Prothrombin Time 14.9 Seconds (11.1-14.7)
[2019-11-01 07:40] LABS: INR 1.9; Prothrombin Time 20.9 Seconds (11.1-14.7)
[2019-11-04 07:51] LABS: INR 2.6; Prothrombin Time 27.7 Seconds (11.1-14.7)
[2019-11-06 07:50] LABS: INR 2.6; Prothrombin Time 27.1 Seconds (11.1-14.7)
[2019-11-13 08:12] LABS: INR 2.3; Prothrombin Time 25.2 Seconds (11.1-14.7)
[2019-11-15 09:42] LABS: Prothrombin Time 30.5 Seconds (11.1-14.7)
[2019-11-18 07:52] LABS: INR 3.5; Prothrombin Time 34.8 Seconds (11.1-14.7)
[2019-11-20 07:24] LABS: INR 2.8; Prothrombin Time 28.8 Seconds (11.1-14.7)
== END 2020-01-09 23:59 | disposition home or self-care (01) ==
LOC: ANHLAB 06:55
PROVIDERS: PCP Emergency Medicine; Referring Provider Physician Assistant; Visit Provider Emergency Medicine
DX: I82.431 Acute embolism and thrombosis of right popliteal vein (principal)
CPT/HCPCS: 36415; 85610

== ENCOUNTER 2019-11-25 07:47 | Outpatient (CLI) | payer OTHER, SELFPAY ==
[2019-11-25 08:20] LABS: INR 2.5; Prothrombin Time 24.9 Seconds (9.64-11.0)
[2019-11-25 09:58] LABS: Alanine Aminotransferase 38 U/L (16-63); Albumin Level 4.2 g/dL (3.4-5.0); Alkaline Phosphatase 58 U/L (46-116); Anion Gap 6 mmol/L (8-16); Aspartate Amino Transferase 19 U/L (15-37); Bilirubin,Total 0.4 mg/dL (0.00-1.00); Blood Urea Nitrogen 17 mg/dL (7-18); Calcium 9.1 mg/dL (8.5-10.1); Carbon Dioxide 32 mmol/L (21-32); Chloride 102 mmol/L (98-108); Cholesterol 271 mg/dL (0-200); Estimated Glomerular Filt Rate 56; Glucose 104 mg/dL (70-99); HDL Direct 63 mg/dL (40-60); LDL Cholesterol Calculated 188 mg/dL (<130); Osmolality Calculated 291 mOsm/kg (285-295); Potassium 4.4 mmol/L (3.5-5.1); Sodium 140 mmol/L (136-145); Total Protein 7.2 g/dL (6.4-8.2); Triglycerides 99 mg/dL (0-150)
[2019-11-29 11:21] LABS: Vitamin D 1,25 (OH)2 Total 32 pg/mL (18-72); Vitamin D2 1,25 (OH)2 <8 pg/mL; Vitamin D3 1,25 (OH)2 32 pg/mL
== END 2019-11-25 07:48 | disposition home or self-care (01) ==
PROVIDERS: Physician Assistant; PCP Emergency Medicine; Visit Provider Emergency Medicine
DX: I82.409 Acute embolism and thrombosis of unspecified deep veins of unspecified lower extremity (principal); I26.99 Other pulmonary embolism without acute cor pulmonale; E78.5 Hyperlipidemia, unspecified; E55.9 Vitamin D deficiency, unspecified
CPT/HCPCS: 36415; 80053; 80061; 82652; 85610

== ENCOUNTER 2019-12-30 07:59 | Outpatient (CLI) | payer OTHER, SELFPAY ==
--- NOTE | ~2019-12-30 | CT_ITS ---
EXAMINATION: CT brain wo con DATE: 12/30/2019 08:20 INDICATION: Frontal headache. TECHNIQUE: Computed tomography (CT) of the head was performed without intravenous contrast. The mA wa s adjusted according to patient size. Iterative reconstruction technique was employed. The dose-lengt h product was 605.33 mGy-cm. COMPARISON: Head CT 11/10/2019 FINDINGS: There is no intracranial hemorrhage, acute infarction, or abnormal intracranial mass lesion . The ventricles are normal in size. There is mild mucosal thickening in the ethmoid sinuses. The orb its are normal. The mastoid air cells are normal. IMPRESSION: 1. Normal brain. Reviewed, dictated and finalized at location A. IMPRESSION: 1. Normal brain.
== END 2019-12-30 08:00 | disposition home or self-care (01) ==
LOC: ANHIMG 08:02
PROVIDERS: PCP Emergency Medicine; Visit Provider Specialist
DX: R51 Headache (principal)
CPT/HCPCS: 70450

== ENCOUNTER 2020-01-03 08:30 | Outpatient (CLI) | payer OTHER, SELFPAY ==
[2020-01-03 08:51] LABS: INR 3.5; Prothrombin Time 34.6 Seconds (9.64-11.0)
== END 2020-01-03 08:31 | disposition home or self-care (01) ==
LOC: CHSLAB 08:33
PROVIDERS: PCP Emergency Medicine; Visit Provider Emergency Medicine
DX: I82.409 Acute embolism and thrombosis of unspecified deep veins of unspecified lower extremity (principal); I26.99 Other pulmonary embolism without acute cor pulmonale
CPT/HCPCS: 36415; 85610

== ENCOUNTER 2020-01-27 10:50 | Outpatient (CLI) | payer OTHER, SELFPAY ==
--- NOTE | ~2020-01-27 | US_ITS ---
EXAMINATION: US venous doppler LE RT DATE: 01/27/2020 11:27 INDICATION: Acute embolism and thrombosis of unspecified deep vein. TECHNIQUE: Grayscale ultrasound images without and with compression and Doppler ultrasound images of the right lower extremity veins were obtained. COMPARISON: Ultrasound 10/04/2019 FINDINGS: The visualized portions of right common femoral vein, profunda (deep) femoral vein, femoral vein, and greater saphenous vein outflow are patent. There is thrombus in right popliteal, posterior tibial, a nd peroneal veins. IMPRESSION: 1. Deep vein thrombosis involving the right popliteal, posterior tibial, and peroneal veins without change in distribution. Reviewed, dictated and finalized at location A. IMPRESSION: 1. Deep vein thrombosis involving the right popliteal, posterior tibial, and p eroneal veins without change in distribution.
== END 2020-01-27 10:51 | disposition home or self-care (01) ==
LOC: CHSIMG 10:52
PROVIDERS: PCP Emergency Medicine; Visit Provider Emergency Medicine
DX: I82.492 Acute embolism and thrombosis of other specified deep vein of left lower extremity (principal)
CPT/HCPCS: 93971

== ENCOUNTER 2020-01-30 08:38 | Outpatient (CLI) | payer OTHER, SELFPAY ==
--- NOTE | ~2020-01-30 | CT_ITS ---
EXAMINATION: CTA chest PE protocol DATE: 01/30/2020 09:15 INDICATION: Secondary hypercoagulable state. TECHNIQUE: Computed tomography angiography (CTA) of the chest was performed with 100 mL Omnipaque-350 intravenous contrast timed to evaluate the pulmonary arteries. Coronal maximum intensity projection 3D-reconstructions were created by the technologist. Automated exposure control and iterative reconst ruction technique were employed. The dose-length product was 342.77 mGy-cm. COMPARISON: Chest CT 10/16/2019 FINDINGS: There is mild atelectasis in the lungs bilaterally. A calcified left lung nodule and calcif ied left hilar lymph nodes are consistent with old granulomatous disease. No pleural effusion. The he art size is normal. There are coronary artery calcifications. No pericardial effusion. There is no pu lmonary embolus. There are changes of cholecystectomy. There is mild thoracic spondylosis. IMPRESSION: 1. No pulmonary embolus. Reviewed, dictated and finalized at location A. IMPRESSION: 1. No pulmonary embolus.
[2020-01-30 09:09] LABS: Estimated Glomerular Filt Rate 59
== END 2020-01-30 08:39 | disposition home or self-care (01) ==
PROVIDERS: PCP Emergency Medicine; Visit Provider Internal Medicine Hematology & Oncology
DX: D68.69 Other thrombophilia (principal)
CPT/HCPCS: 71275; Q9967

== ENCOUNTER 2020-01-31 08:24 | Outpatient (RCR) | payer OTHER, SELFPAY ==
[2019-11-21 07:57] LABS: INR 1.5; Prothrombin Time 15.4 Seconds (9.64-11.0)
[2019-11-27 09:14] LABS: INR 2.6; Prothrombin Time 25.8 Seconds (9.64-11.0)
[2019-11-29 07:36] LABS: INR 3.1; Prothrombin Time 30.5 Seconds (9.64-11.0)
[2019-12-02 08:05] LABS: INR 3.1; Prothrombin Time 30.7 Seconds (9.64-11.0)
[2019-12-04 07:31] LABS: INR 3.2; Prothrombin Time 31.4 Seconds (9.64-11.0)
[2019-12-06 07:42] LABS: INR 3.1; Prothrombin Time 30.5 Seconds (9.64-11.0)
[2019-12-09 07:43] LABS: INR 3.1; Prothrombin Time 30.4 Seconds (9.64-11.0)
[2019-12-11 07:54] LABS: INR 2.7; Prothrombin Time 26.6 Seconds (9.64-11.0)
[2019-12-13 08:06] LABS: INR 3.2
[2019-12-18 09:03] LABS: Prothrombin Time 30.3 Seconds (9.64-11.0)
[2019-12-20 09:00] LABS: Prothrombin Time 39.2 Seconds (9.64-11.0)
[2019-12-23 09:30] LABS: INR 4.2; Prothrombin Time 41.2 Seconds (9.64-11.0)
[2019-12-25 09:34] LABS: INR 1.6; Prothrombin Time 15.9 Seconds (9.64-11.0)
[2019-12-25 10:36] LABS: Alanine Aminotransferase 71 U/L (16-63); Albumin Level 4.3 g/dL (3.4-5.0); Alkaline Phosphatase 71 U/L (46-116); Anion Gap 6 mmol/L (8-16); Aspartate Amino Transferase 22 U/L (15-37); Bilirubin,Total 0.7 mg/dL (0.00-1.00); Blood Urea Nitrogen 18 mg/dL (7-18); Calcium 8.7 mg/dL (8.5-10.1); Carbon Dioxide 32 mmol/L (21-32); Chloride 103 mmol/L (98-108); Cholesterol 238 mg/dL (0-200); Estimated Glomerular Filt Rate > 60; Glucose 113 mg/dL (70-99); HDL Direct 49 mg/dL (40-60); LDL Cholesterol Calculated 161 mg/dL (<130); Osmolality Calculated 294 mOsm/kg (285-295); Potassium 4.5 mmol/L (3.5-5.1); Sodium 141 mmol/L (136-145); Total Protein 7.1 g/dL (6.4-8.2); Triglycerides 140 mg/dL (0-150)
[2019-12-27 11:38] LABS: INR 1.4; Prothrombin Time 13.9 Seconds (9.64-11.0)
[2019-12-30 07:35] LABS: INR 1.9; Prothrombin Time 19.6 Seconds (9.64-11.0)
[2020-01-06 07:59] LABS: INR 1.5
[2020-01-15 08:19] LABS: INR 1.3; Prothrombin Time 13.4 Seconds (9.64-11.0)
[2020-01-24 08:20] LABS: INR 4.3; Prothrombin Time 42.2 Seconds (9.64-11.0)
[2020-01-27 08:53] LABS: INR 1.7
[2020-01-31 09:05] LABS: INR 1.1; Prothrombin Time 11.7 Seconds (9.64-11.0)
== END 2020-02-19 23:59 | disposition home or self-care (01) ==
LOC: CHSLAB 08:24
PROVIDERS: Internal Medicine Cardiovascular Disease; PCP Emergency Medicine; Visit Provider Emergency Medicine
DX: I82.409 Acute embolism and thrombosis of unspecified deep veins of unspecified lower extremity (principal); I26.99 Other pulmonary embolism without acute cor pulmonale
CPT/HCPCS: 36415; 80053; 80061; 85610

== ENCOUNTER 2020-02-07 13:42 | Outpatient (CLI) | payer OTHER, SELFPAY ==
[2020-02-07 14:12] LABS: INR 1.1; Prothrombin Time 11.2 Seconds (9.64-11.0)
== END 2020-02-07 13:43 | disposition home or self-care (01) ==
LOC: CHSLAB 13:44
PROVIDERS: PCP Emergency Medicine; Visit Provider Internal Medicine Hematology & Oncology
DX: D68.69 Other thrombophilia (principal); I82.409 Acute embolism and thrombosis of unspecified deep veins of unspecified lower extremity; I26.99 Other pulmonary embolism without acute cor pulmonale
CPT/HCPCS: 36415; 81240; 81241; 85610

== ENCOUNTER 2020-02-10 13:29 | Outpatient (CLI) | payer OTHER, SELFPAY ==
--- NOTE | ~2020-02-10 | US_ITS ---
EXAMINATION: US venous doppler LE RT DATE: 02/10/2020 13:53 INDICATION: Acute deep vein thrombosis of popliteal vein of right lower extremity. TECHNIQUE: Grayscale ultrasound images without and with compression and Doppler ultrasound images of the right lower extremity veins were obtained. COMPARISON: Ultrasound 01/27/2020 FINDINGS: The visualized portions of right common femoral vein, profunda (deep) femoral vein, femoral vein, and greater saphenous vein outflow are patent. There is thrombus in the popliteal vein and posterior tib ial and peroneal veins. IMPRESSION: 1. Deep vein thrombosis involving the right popliteal, posterior tibial, and peroneal veins without change in distribution. Reviewed, dictated and finalized at location A. SORTER IMPRESSION: 1. Deep vein thrombosis involving the right popliteal, posterior tibial, and p eroneal veins without change in distribution.
== END 2020-02-10 13:30 | disposition home or self-care (01) ==
LOC: CHSIMG 13:31
PROVIDERS: PCP Emergency Medicine; Visit Provider Internal Medicine Hematology & Oncology
DX: I82.431 Acute embolism and thrombosis of right popliteal vein (principal)
CPT/HCPCS: 93971

== ENCOUNTER 2020-03-23 13:50 | Outpatient (CLI) | payer OTHER, SELFPAY ==
--- NOTE | ~2020-03-23 | US_ITS ---
EXAMINATION: US venous doppler LE RT DATE: 03/23/2020 14:15 INDICATION: Recent deep venous thrombosis on blood thinners. TECHNIQUE: Grayscale ultrasound images without and with compression and Doppler ultrasound images of the right lower extremity veins were obtained. COMPARISON: 02/10/2020 FINDINGS: Persistent noncompressible deep venous thrombosis at the right popliteal, posterior tibial and perone al veins with small amount of residual vascular flow evident in the vessels on color Doppler. The vis ualized portions of right common femoral vein, profunda (deep) femoral vein, femoral vein, gastrocnem ius vein and greater saphenous vein outflow are patent. IMPRESSION: 1. No interval change in deep venous thrombosis in the right popliteal, posterior tibial and peronea l veins. Reviewed, dictated and finalized at location B. OSING MACHINE OPERATOR IMPRESSION: 1. No interval change in deep venous thrombosis in the right popliteal, maori physiotherapist ior tibial and peroneal veins.
== END 2020-03-23 13:51 | disposition home or self-care (01) ==
PROVIDERS: PCP Emergency Medicine; Visit Provider Emergency Medicine
DX: R52 Pain, unspecified (principal)
CPT/HCPCS: 93971

== ENCOUNTER 2020-04-21 11:01 | Outpatient (CLI) | payer OTHER, SELFPAY ==
--- NOTE | ~2020-04-21 | XR_ITS ---
EXAMINATION: XR hip RT 2V w AP pelvis EXAM DATE: 04/21/2020 11:47 INDICATION: Right hip pain for several years. TECHNIQUE: Right hip frontal, 'frog leg' projections for interpretation. Frontal projection pelvis. There is no prior study for comparison. FINDINGS: Smooth right hip femoral head contour, no radiographic evidence of avascular necrosis. The re is mild symmetric bilateral hip primary osteoarthritis. There are no acute fractures or dislocatio ns identified. There is no subcutaneous gas. The soft tissue is unremarkable. There are no radiop aque foreign bodies. IMPRESSION: Mild symmetric bilateral hip osteoarthritis. Reviewed, dictated and finalized at location B. PASSER
--- NOTE | ~2020-04-21 | US_ITS ---
EXAMINATION: US venous doppler LE EXAM DATE: 04/21/2020 11:46 INDICATION: M79.661 - Pain in right lower leg. TECHNIQUE: Multiple grayscale, color flow and Doppler images of the right lower extremity deep venous system obtained and reviewed. Comparison is made to prior examination from 03/23/2020. FINDINGS: RIGHT SIDE Common femoral: -------- Normal. Profunda femoral: ------- Normal. Femoral: Normal. Popliteal: Persistent thrombus. Posterior tibial: ---------Interval recanalization. Peroneal: Persistent thrombus. Gastrocnemius: Not visualized. Soleus: Not visualized. Greater saphenous: ----- Normal. Lesser saphenous: ------ Not visualized. IMPRESSION: Persistent popliteal, peroneal DVT. Reviewed, dictated and finalized at location B. DROPPER
== END 2020-04-21 11:02 | disposition home or self-care (01) ==
PROVIDERS: PCP Emergency Medicine; Visit Provider Emergency Medicine
DX: M79.661 Pain in right lower leg (principal); M25.551 Pain in right hip
CPT/HCPCS: 73502; 93971

== ENCOUNTER 2020-05-08 11:42 | Outpatient (CLI) | payer OTHER, SELFPAY ==
--- NOTE | ~2020-05-08 | US_ITS ---
EXAMINATION: US venous doppler [facility] EXAM DATE: 05/08/2020 12:07 INDICATION: Left leg pain. TECHNIQUE: Multiple grayscale, color flow and Doppler images of the left lower extremity deep venous system were obtained and reviewed. There is no prior study for comparison. FINDINGS: The left common femoral, femoral and profunda veins demonstrate normal color flow, respirat ory variation, augmentation and compressibility. Compressibility, color flow confirmed within the le ft popliteal, posterior tibial, peroneal, and greater saphenous veins. IMPRESSION: No left lower extremity deep venous thrombosis. Reviewed, dictated and finalized at location A. HIC DESIGN MANAGER
== END 2020-05-08 11:43 | disposition home or self-care (01) ==
LOC: CHSIMG 11:43
PROVIDERS: PCP Emergency Medicine; Visit Provider Internal Medicine Hematology & Oncology
DX: M79.605 Pain in left leg (principal)
CPT/HCPCS: 93971

== ENCOUNTER 2020-06-08 13:30 | Observation (INO) | payer OTHER, SELFPAY ==
[2020-06-08] VITALS (25 sets, daily range): BP systolic 135–166; BP diastolic 94–114; PULSE 67–83; RESP 13–20; TEMP 36.2–36.4; O2SAT 97–100
--- NOTE | ~2020-06-08 | US_ITS ---
EXAMINATION: US venous doppler [facility] DATE: 06/08/2020 17:27 INDICATION: Lower limb pain TECHNIQUE: Castellon scale images without and with compression and Doppler images of the bilateral lower e xtremity veins were obtained. COMPARISON: 04/28/2020 FINDINGS: The right common femoral vein, profunda femoral vein, femoral vein, popliteal vein, peroneal trunk, p osterior tibial veins, and greater saphenous vein are patent. The left common femoral vein, profunda femoral vein, femoral vein, popliteal vein, peroneal trunk, po sterior tibial veins, and greater saphenous vein are patent. IMPRESSION: 1. Patent bilateral lower extremity veins. No evidence of deep venous thrombosis. Reviewed, dictated and finalized at location A. LINING FITTER IMPRESSION: 1. Patent bilateral lower extremity veins. No evidence of deep venous thrombosi s.
--- NOTE | ~2020-06-08 | CT_ITS ---
EXAMINATION: CTA chest PE abdomen pel DATE: 06/08/2020 15:00 INDICATION: Hemoptysis. Chest pain and epigastric abdominal pain. TECHNIQUE: Computed tomography angiography (CTA) of the chest was performed with 100 mL Omnipaque-350 intravenous contrast timed to evaluate the pulmonary arteries. Coronal maximum intensity projection 3D-reconstructions were created by the technologist. Computed tomography (CT) of the abdomen and pelv is was performed with intravenous contrast. Automated exposure control and iterative reconstruction t echnique were employed. The dose-length product was 901.11 mGy-cm. COMPARISON: Chest CT 01/30/2020 FINDINGS: CTA chest: There are tree-in-bud opacities in right middle lobe. There are multiple cavitary nodules with groundglass halos in the lower lobes. There are a few groundglass opacities without nodules in t he lower lobes. A calcified left lung nodule and calcified left hilar and mediastinal lymph nodes are consistent with old granulomatous disease. No pleural effusion. The heart size is normal. No pericar dial effusion. There is no pulmonary embolus. There is mild thoracic spondylosis. CT abdomen and pelvis: The liver and spleen are normal. There are changes of cholecystectomy. The hare creas, adrenal glands, and kidneys are normal. The prostate is mildly enlarged. There are no dilated loops of bowel. The appendix is normal. There are no pathologically enlarged lymph nodes. There is no free intraperitoneal fluid. There is severe lower lumbar spondylosis. IMPRESSION: 1. No pulmonary embolus. 2. Nodules and groundglass opacities in the lower lobes and right middle lobe including cavitary nodu les in the lower lobes. The differential diagnosis includes pneumonia, septic emboli, and less likel y metastatic disease or vasculitis such as granulomatosis with polyangiitis. Reviewed, dictated and finalized at location A. SPORTATION CLERK IMPRESSION: 1. No pulmonary embolus. 2. Nodules and groundglass opacities in the lower lobes and right middle lobe i ncluding cavitary nodules in the lower lobes. The differential diagnosis includ es pneumonia, septic emboli, and less likely metastatic disease or vasculitis such as granulomatosis with polyangiitis.
--- NOTE | 2020-06-08 13:58 | ED.GENADULT ---
HPI - General Adult General Chief complaint: Upper Respiratory Infection Stated complaint: Coughing up blood Time Seen by Provider: 06/08/20 13:32 Source: patient History of Present Illness HPI narrative: Patient is a 49 y/o male complaining of chest pain and coughing up blood start 20 minutes ago. He describes his chest pain as midsternal and rates it as 5/10. He states that coughing makes his chest pain worse. There is no pain radiation. He also felt sweaty. He states that he is on Eliquis for history of DVT and PE. Related Data Allergies Allergy/AdvReac Type Severity Reaction Status Date / Time clopidogrel Allergy Unknown Unknown Verified 02/03/20 14:06 CLOPIDOGREL BISULFATE Allergy Unknown Unknown Uncoded 02/03/20 14:06 Review of Systems Constitutional: Constitutional: Denies chills, Reports excessive sweating, Denies fever(s), Denies headache(s) and Denies weakness Eyes: Eyes: Denies blurry vision ENT: Denies headache(s) and Denies neck pain Cardiovascular: Cardiovascular: Reports chest pain and Denies dyspnea Respiratory: Respiratory: Reports cough, Reports hemoptysis and Reports dyspnea Gastrointestinal: Gastrointestinal: Denies abdominal pain, Denies diarrhea, Denies nausea and Denies vomiting Genitourinary: Genitourinary: Denies hematuria and Denies dysuria Musculoskeletal: Musculoskeletal: Denies back pain, Denies neck pain and Reports other (chronic right leg pain due to DVT) Neurologic: Denies headache(s) and Denies weakness PMFSH Past Medical History Medical History Closed displaced fracture of distal phalanx of lesser toe of left foot Closed nondisplaced fracture of distal phalanx of left great toe DVT of lower extremity (deep venous thrombosis) Dyslipidemia Encounter for screening for cardiovascular disorders Hypertension Pulmonary embolism Systolic congestive heart failure Vitamin D deficiency disease Surgical History Surgical History History of tonsillectomy Hx of cholecystectomy Family History Family History Sibling DVT (deep venous thrombosis) Father Diabetes mellitus Other Family history of malignant neoplasm of skin Social History Social History Smoking status: Never smoker Alcohol intake: current Drinks per week: 18 Substance use: never Gender identity (if verbalized by the patient): Male Spiritual care concerns: No Exam Const: General: no acute distress and well developed Orientation/consciousness: oriented to person, oriented to place, oriented to time and patient oriented x3 HENMT: Head: normocephalic Ears: external ears normal General nose exam: Normal external nose present Eyes: General: appearance normal, both eyes and all related structures Conjunctivae: conjunctivae normal Neck: Neck: normal visual inspection and full ROM Chest: Chest palpation & inspection: normal inspection of the chest and no tenderness Resp: Effort & Inspection: normal respiratory effort Auscultation: clear to auscultation bilaterally Cardio: Rate: regular rate Rhythm: regular rhythm GI: GI Palp: No abdominal tenderness and Yes Soft to palpation Skin: General skin exam: normal color and turgor normal Neuro: General: oriented to person, oriented to place, oriented to time and patient oriented x3 Cognition (Neuro): normal cognition Extrem: General: normal to inspection, full ROM and no pedal edema Psych: Appearance: grossly normal Mental Status: mental status grossly normal Affect: normal affect Course Consultations Consultation #1: Discussed with Dr. Escudero, who agrees to consult and recommends empirical antibiotic, Echo and repeat LE doppler. Date: 06/08/20 Time: 16:05 Consultation #2: Discussed with DELANEY Santos, who agrees to admit. Date: 06/08/20 Time: 16:45
[2020-06-08 14:00] LABS: Basophils Absolute Auto 0.1 K/mm3 (0.0-0.1); Basophils Percent Auto 0.7 % (0.2-1.2); Eosinophils Absolute Auto 0.1 K/mm3 (0-0.3); Eosinophils Percent Auto 1.9 % (0-4.4); Hematocrit 45.8 % (42.0-52.0); Hemoglobin 15.5 g/dL (14.0-18.0); Immature Granulocyte Absolute 0.02 K/mm3 (0.00-0.031); Immature Granulocyte Percent A 0.3 % (0-0.5); Lymphocytes Absolute Auto 1.92 K/mm3 (0.9-3.2); Lymphocytes Percent Auto 27.9 % (18.3-44.2); Mean Corpuscular HGB Conc 33.8 g/dl (32-36); Mean Corpuscular Hemoglobin 29.2 pg (26-34); Mean Corpuscular Volume 86.3 fl (80-100); Mean Platelet Volume 10.2 fl (7.4-10.4); Monocytes Absolute Auto 0.4 K/mm3 (0.1-0.6); Monocytes Percent Auto 6.2 % (2.6-8.5); Neutrophils Absolute Auto 4.3 K/mm3 (1.3-6.7); Platelet Count Result 287 k/mm3 (150-375); Red Blood Count 5.31 M/mm3 (4.6-6.20); Red Cell Distribution Width 12.6 % (11.5-14.5); White Blood Count 6.9 K/mm3 (4.5-10.0)
[2020-06-08 14:11] LABS: Prothrombin Time 13.9 Seconds (11.1-14.7)
[2020-06-08 14:12] LABS: Partial Thromboplastin Time 30.8 SECONDS (22.3-36.8)
[2020-06-08 14:45] LABS: Alanine Aminotransferase 71 U/L (4-50); Albumin Level 4.5 g/dL (3.5-5.1); Alkaline Phosphatase 55 U/L (38-126); Anion Gap 4 mmol/L (8-16); Aspartate Amino Transferase 42 U/L (17-59); Bilirubin,Total 0.5 mg/dL (0.2-1.3); Blood Urea Nitrogen 21 mg/dL (9-20); Calcium 9.2 mg/dL (8.4-10.2); Carbon Dioxide 35 mmol/L (22-30); Chloride 98 mmol/L (98-107); Estimated CRCL calculation 57 ml/min; Estimated Glomerular Filt Rate 54; Glucose 112 mg/dL (75-110); Potassium 3.6 mmol/L (3.4-5.0); Sodium 137 mmol/L (137-145)
[2020-06-08 15:00] LABS: Troponin I < 0.012 ng/mL (0.000-0.034)
[2020-06-08 17:16] LABS: CRP < 0.5 mg/dL (<1.0)
[2020-06-08 17:19] LABS: Erythrocyte Sedimentation Rate 4 mm/hr (0-20)
[2020-06-08 17:25] LABS: Troponin I 0.034 ng/mL (0.000-0.034)
[2020-06-08] MEDS: SODIUM CHLORIDE 0.9% IV 1,000 ML 999 ML IV CONT (18:15)
--- NOTE | 2020-06-08 18:51 | PC.NURSE ---
Pt was transferred from the ED and arrived on the 3 med surg floor at 1850. This nurse will pass on information to next nurse.
--- NOTE | 2020-06-08 18:54 | ADMGEN ---
This patient, Dakota Richardson, was admitted to 3 [facility] Surg Room 311-01. Patient/family oriented to hospital policies and general routines including ID bracelet, bed and alarms, visiting hours, pain management, procedures, bathroom and other care routines, personal items, smoking policy, room service/diet, and visiting hours. Information on how to activate the Rapid Response Team has been discussed. Patient/Family are encouraged to report perceived risks to care and to ask questions if they do not understand what they are told or what they should do.
[2020-06-08 20:40] LABS: Troponin I 0.021 ng/mL (0.000-0.034)
[2020-06-08 21:08] LABS: HIV 1/2 Ab P24 Ag Result Negative (Negative)
--- NOTE | 2020-06-08 23:23 | PM.IMHP ---
H&P: HPI History of Present Illness Date/Time: 06/08/20 23:23 Chief Complaint: Hemoptysis Narrative: Dakota Richardson is a 49 year old male and PE. The patient has been on Eliquis. The patient attempted warfare in in the past but could not get therapeutic. He was then transitioned to Eliquis that was started on January 31, 2020. Patient had a deep vein thrombosis of the popliteal vein in the right lower extremity. The patient has been off work for 5 months. Today the patient was at work and he started coughing up blood. Happened about 20 minutes prior to coming to the emergency room. The patient stated it was hands full of blood that he was coughing up initially. That I got to be less and less. He is no longer coughing up any blood. The patient has been taking his medication as prescribed. Patient's creatinine is 1.4 and his BUN is 21. Shows patent bilateral lower extremity veins. No evidence of any DVT.. Nodules and ground-glass opacities in the lower lung and right mid lobe including cavitary nodules in the lower lobes. Differential includes pneumonia, septic emboli and believes likely metastatic disease or vasculitis such as granulomatosis with polyangiitis. On IV fluids and empirically started on Rocephin and azithromycin for possibility of community-acquired pneumonia. The patient was swabbed for COVID-19. He was placed in isolation. Troponin negative x3. CRP is negative. Gold Plus TB test is pending. The patient is being admitted to observation on the date of service of 06/09/2019 Review of Systems Review of Systems: All systems reviewed & are unremarkable except as noted in HPI and below Constitutional: Constitutional: Reports as per HPI and Reports no additional constitutional complaints Eyes: Eyes: Reports as per HPI and Reports no additional eye complaints ENT: Reports system reviewed and no additional complaints, except as documented and Reports Normal hearing present Cardiovascular: Cardiovascular: Reports no additional cardiovascular complaints Respiratory: Respiratory: Reports no additional respiratory complaints and Reports no additional respiratory complaints Gastrointestinal: Gastrointestinal: Reports as per HPI and Reports no additional gastrointestinal complaints Musculoskeletal: Musculoskeletal: Reports no additional musculoskeletal complaints Integumentary/Breasts: Skin/Breast: Reports system reviewed and no additional complaints, except as docu and Reports as per HPI Neurologic: Reports system reviewed and no additional complaints, except as documented, Reports as per HPI and Reports Normal hearing present Psychiatric: Psychiatric: Reports no additional psychiatric complaints and Reports as per HPI Endocrine: Endocrine: Reports no additional endocrine complaints Hematologic/Lymphatic: Hematologic/Lymphatic: Reports no additional hematologic/lymphatic complaints Allergic/Immunologic: Allergic/Immunologic: Reports no additional allergic/immunologic complaints [facility] Past Medical History Medical History Closed displaced fracture of distal phalanx of lesser toe of left foot Closed nondisplaced fracture of distal phalanx of left great toe DVT of lower extremity (deep venous thrombosis) Dyslipidemia Encounter for screening for cardiovascular disorders Hypertension Pulmonary embolism Systolic congestive heart failure Vitamin D deficiency disease Surgical History Surgical History History of tonsillectomy Hx of cholecystectomy Family History Family History Sibling DVT (deep venous thrombosis) Father Diabetes mellitus Other Family history of malignant neoplasm of skin Social History Social History (Updated 06/08/20 @ 23:34 by Danielle Santoyo NP) Social History: The patient is and has a significant other. The patient
[2020-06-09] VITALS (8 sets, daily range): BP systolic 135–152; BP diastolic 76–97; PULSE 60–72; RESP 18–20; TEMP 36.2–36.8; O2SAT 96–100
[2020-06-09 06:16] LABS: Basophils Percent Auto 0.7 % (0.2-1.2); Eosinophils Absolute Auto 0.2 K/mm3 (0-0.3); Eosinophils Percent Auto 3.1 % (0-4.4); Hematocrit 44.4 % (42.0-52.0); Hemoglobin 14.6 g/dL (14.0-18.0); Immature Granulocyte Absolute 0.01 K/mm3 (0.00-0.031); Immature Granulocyte Percent A 0.2 % (0-0.5); Lymphocytes Absolute Auto 1.79 K/mm3 (0.9-3.2); Lymphocytes Percent Auto 30.8 % (18.3-44.2); Mean Corpuscular HGB Conc 32.9 g/dl (32-36); Mean Corpuscular Hemoglobin 28.1 pg (26-34); Mean Corpuscular Volume 85.5 fl (80-100); Mean Platelet Volume 10.1 fl (7.4-10.4); Monocytes Absolute Auto 0.5 K/mm3 (0.1-0.6); Monocytes Percent Auto 8.4 % (2.6-8.5); Neutrophils Absolute Auto 3.3 K/mm3 (1.3-6.7); Neutrophils Percent Auto 56.8 % (45.5-73.1); Platelet Count Result 258 k/mm3 (150-375); Red Blood Count 5.19 M/mm3 (4.6-6.20); Red Cell Distribution Width 12.8 % (11.5-14.5); White Blood Count 5.8 K/mm3 (4.5-10.0)
[2020-06-09 06:32] LABS: Alanine Aminotransferase 68 U/L (4-50); Albumin Level 4.3 g/dL (3.5-5.1); Alkaline Phosphatase 50 U/L (38-126); Anion Gap 5 mmol/L (8-16); Aspartate Amino Transferase 45 U/L (17-59); Bilirubin,Total 0.6 mg/dL (0.2-1.3); Blood Urea Nitrogen 16 mg/dL (9-20); Calcium 9.4 mg/dL (8.4-10.2); Carbon Dioxide 32 mmol/L (22-30); Chloride 101 mmol/L (98-107); Estimated CRCL calculation 62 ml/min; Estimated Glomerular Filt Rate 59; Glucose 102 mg/dL (75-110); Potassium 4.2 mmol/L (3.4-5.0); Sodium 138 mmol/L (137-145)
[2020-06-09] MEDS: ROSUVASTATIN 10 MG TABLET 20 MG PO (10:54)
[2020-06-09] MEDS: amLODIPine BESYLATE 5 MG TABLET PO (10:55)
[2020-06-09] MEDS: CHOLECALCIFEROL 1,000 UNITS TABLET 2000 UNITS PO (10:55)
--- NOTE | 2020-06-09 11:47 | PM.CNPUL ---
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 Patient has no had no additional hemoptysis after holding his Eliquis and initiating treatment for pneumonia with ceftriaxone and azithromycin. Etiology of hemoptysis and infiltrates include: infection (bacterial, fungal, AFB and viral), cancer, vasculitis. Agree with holding eliquis for now. Agree with ceftriaxone and azithromycin as no risk factors for resistant organisms. Follow bacterial cultures, will send sputum, will send histo and blasto studies, quantiferon gold pending, COVID pending and will send influenza swab. Echo to evaluate valve. He is a never smoke. No weight loss. Will need to follow CT scan in future. Will send extended autoimmune panel, ANCA, RF for CTDS/vasculitis. (2) Pulmonary embolism: Qualifiers: Pulmonary embolism type: single subsegmental (without acute cor pulmonale) Qualified Code(s): I26.93 - Single subsegmental pulmonary embolism without acute cor pulmonale Code(s): I26.99 - Other pulmonary embolism without acute cor pulmonale Status: Acute Assessment and Plan: Patient with unprovoked DVT and sister with a history of DVT. Patient has had negative factor 5 and prothrombin G2 0210 a mutations. Patient's MT HF are genotype is not associated with DVT formation. I will send lupus anticoagulant, anticardiolipin, beta 2 glycoprotein levels, protein C, protein S, and a 3 level antithrombin 3 levels and homocystine level looking for alternative explanations of his unprovoked DVT. Currently the patient has no PE or no DVT On his Dopplers performed 06/09/2019. Will follow with you. History of Present Illness History of Present Illness Consult date: 06/09/20 Reason for consult: other (Hemoptysis) Chief complaint: pneumonia/hemoptysis Narrative: This is a new consult for hemoptysis. This is a 49-year-old male with a history of hypertension and DVT on 10/04/2019 with PE on 10/16/2019 initially treated with warfarin and then switched to Eliquis in February of 2020. Patient had a repeat CT scan of the chest on 01/30/2020 with no PE. Patient had repeat right lower extremity Dopplers which were positive for DVT on 02/10/2020, 03/23/2020, and 04/21/2020. Patient was seen by a social insurance specialist and his factor 5 mutation was negative on 02/07/2020, on 10/17/2019 is MTHFR genotype was performed and he had 2 copies of [id number] which is not associated with increased thrombus formation and on 02/07/2020 he had a [id number] analysis which was not detected. Of note patient has a younger sister who developed a right lower extremity DVT at age 45. Patient has a mother and father who are alive without clotting issues. Patient has a healthy 19-year-old daughter who has had no clotting issues. 06/09 Patient was in his usual state of health on 06/08 with no respiratory limitations or symptoms. Patient denied fever, chills, recent vomiting, recent aspiration, recent seizures, recent blackout spells, recent epistaxis, recent hematemesis. He then developed a sweating episode and began coughing and with his 1st cough episode he coughed up a mouth full of blood. He describes this as bright red blood. This occurred 6 times prior to him arriving in the emergency department. In the emergency department he had no additional hemoptysis. Hemodynamically stable with saturations 100% on room air. Patient had a CT scan of the chest which demonstrated tree in bud opacities right middle lobe, multiple small cavitary nodules (5 mm) with ground-glass in the lower lobes new since CTs on 10/16/2019 and 01/30/2020. OGD. No pleural effusions and no pulmonary embolism. Patient had lower extremity Dopplers which were negative for DVT. A COV
[2020-06-09 13:00] LABS: Rheumatoid Factor < 8.6 IU/ML (<12)
[2020-06-09 15:13] LABS: Influenza Control Positive
--- NOTE | 2020-06-09 17:10 | PM.IMPN ---
Progress Note: A&P Assessment and Plan (1) Pneumonia: Qualifiers: Laterality: bilateral Lung location: unspecified part of lung Pneumonia type: due to unspecified organism Qualified Code(s): J18.9 - Pneumonia, unspecified organism Code(s): J18.9 - Pneumonia, unspecified organism Status: Acute Assessment and Plan: Will continue ceftriaxone and azithromycin at this time -resistant pathogens seem less likely -TB and COVID-19 is pending -pulmonology is on board and has ordered further testing -patient is feeling great and on room air (2) Hemoptysis: Code(s): R04.2 - Hemoptysis Status: Acute Assessment and Plan: Likely due to above? -will consult hematology to see if he needs additional treatment of Eliquis (3) Essential hypertension: Code(s): I10 - Essential (primary) hypertension Status: Acute Assessment and Plan: Last blood pressure 152/77 -continue amlodipine -will restart losartan (4) DVT of lower extremity (deep venous thrombosis): Qualifiers: Affected thrombotic vein of extremity: other lower extremity vein Chronicity: acute Laterality: left Qualified Code(s): I82.492 - Acute embolism and thrombosis of other specified deep vein of left lower extremity Code(s): I82.409 - Acute embolism and thrombosis of unspecified deep veins of unspecified lower extremity Status: Acute Assessment and Plan: Continue to hold Eliquis at this time -sounds like he may have a family history and he has some workup in the chart for genetic causes -have added a few for the morning and pulmonology has also ordered some (5) Dyslipidemia: Code(s): E78.5 - Hyperlipidemia, unspecified Status: Acute Assessment and Plan: Continue with Crestor. Time Spent With Patient Time with patient: 25 - 35 minutes Subjective Date/time seen: 06/09/20 17:10 Interval history: Pt is a 49-year-old male here for hemoptysis. Patient was seen today and has not had any further hemoptysis. Patient states that last year he had the blood clot and his lower extremity and lungs at the same time. He has been on anticoagulation stents. He said his sister had a spontaneous blood clot when she was on control and his grandma has a history of blood clots. He isn't sure if he has ever had genetic testing although there are some notes in the chart. Nevertheless, patient states he does not feel short of breath or have any chest pain. He has not coughing and is feeling much better today. He denies fatigue, nausea, vomiting, diarrhea, night sweats or chills. Review of Systems Review of Systems: All systems reviewed & are unremarkable except as noted in HPI and below Exam Narrative: Exam Narrative: General: Well developed well nourished patient in NAD HEENT: normocephalic Neck: supple Neuro: Alert and oriented x4 CV:RRR. No abnormalities on telemetry Resp:CTA Abd: Soft, non distended. No pain to palpation. Positive bowel sounds Extremities: No swelling, erythema, or pain to palpation. Objective Data Vital Signs Vital Signs: Vital Signs - 24 hr 06/08/20 18:45 06/08/20 18:50 06/08/20 20:00 Temperature 97.5 F L Pulse Rate 73 67 71 Respiratory Rate 16 16 20 Blood Pressure 166/106 H 143/102 H 148/101 H Pulse Oximetry 100 99 99 06/09/20 00:00 06/09/20 04:00 06/09/20 08:00 Temperature 97.3 F L 97.1 F L 97.5 F L Pulse Rate 60 62 68 Respiratory Rate 20 20 20 Blood Pressure 140/90 139/91 H 150/83 H Pulse Oximetry 99 98 96 06/09/20 08:41 06/09/20 12:00 06/09/20 16:00 Temperature 97.9 F 97.2 F L Pulse Rate 71 70 Respiratory Rate 20 20 Blood Pressure 147/76 H 152/77 H Pulse Oximetry 96 100 98 Intake/Output Intake/Output: Intake & Output 06/06/20 06/07/20 06/08/20 06/09/20 23:59 23:59 23:59 23:59 Intake Total 1300 2280 Balance 1300 2280 Meds/Results Medications: Active Medications
[2020-06-09 19:08] LABS: SARS-CoV-2 RNA PCR Negative
--- NOTE | 2020-06-10 | ECHO_ITS ---
Patient Info Name: Dakota Richardson Age: 49 years : 1970 Gender: Male Ht: 69 in Wt: 200 lbs BSA: 2.12 m2 HR: 64 bpm BP: 138 / 82 mmHg Technical Quality: Good Exam Date: 06/10/2020 9:14 AM Exam Location: [facility] Pulmonary Exam Room: 311 Patient Status: Outpatient Admit Date: 06/08/2020 Staff Ordering Physician: Estefania Krishnamurthy MD Account General Manager: Nancy Gusman RDCS Attending Provider: Karina Salter PA-C Referring Physician: Raghu MORSE; Exam Type: CA echo doppler color flow Study Info Indications - CHEST PAIN Complete two-dimentional, color flow and Doppler transthoracic echocardiogram is performed with agitated saline and with contrast to opacify the left ventricle and to improve the delineation of the left ventricle endocardial borders. Summary 1. Left ventricular chamber dimension is normal. 2. Left ventricular systolic function is normal, estimated at 55-60%. 3. The left ventricular diastolic function is grade I diastolic dysfunction. 4. E/e' 6 is not elevated. 5. There is trace mitral valve regurgitation. 6. There is trace tricuspid valve regurgitation. 7. No pulmonary hypertension, estimated pulmonary arterial systolic pressure is 26 mmHg. Left Ventricle E/e' 6 is not elevated. Left ventricular chamber dimension is normal. Left ventricular systolic function is normal, estimated at 55-60%. The left ventricular diastolic function is grade I diastolic dysfunction. Right Ventricle Right ventricular chamber dimension is normal. Right ventricular systolic function is normal. Left Atria Left atrial chamber dimension is normal. Right Atria Right atrial chamber dimension is normal. Aortic Valve The aortic valve is trileaflet. There is no aortic valve stenosis. There is no aortic valve regurgitation. Pulmonic Valve There is no pulmonic regurgitation. Mitral Valve There is no mitral valve stenosis. There is trace mitral valve regurgitation. Tricuspid Valve There is trace tricuspid valve regurgitation. No pulmonary hypertension, estimated pulmonary arterial systolic pressure is 26 mmHg. Pericardium/Pleural There is no pericardial effusion. Inferior Vena Cava Normal inferior vena cava with >50% collapse upon inspiration consistent with normal right atrial pressure, 5 mmHg. Aorta The aortic root size at the sinus of Valsalva is normal. Left Ventricular Outflow Tract Name Value Normal LVOT 2D LVOT Diameter 2.0 cm LVOT Doppler LVOT Peak Gradient 4 mmHg LVOT Mean Gradient 2 mmHg LVOT VTI 20 cm LVOT VTI/AV VTI Ratio 0.9 LVOT Stroke Volume 64 ml LVOT CO 13.6 l/min LVOT CI 6.4 l/min/m2 Pulmonic Valve Name Value Normal PV Doppler
[2020-06-10 05:46] VITALS: BP 145/96; PULSE 77; RESP 16; TEMP 36.5; O2SAT 100
[2020-06-10 08:00] VITALS: PULSE 77; RESP 16; O2SAT 100
--- NOTE | 2020-06-10 08:30 | PM.PNPUL ---
Progress Note: A&P Assessment and Plan (1) Hemoptysis: Code(s): R04.2 - Hemoptysis Status: Acute Assessment and Plan: 06/09 Patient With a history of unprovoked DVT/PE on Eliquis who presents with hemoptysis and multiple small cavities with ground-glass infiltrates on CT scan from 06/08. Patient has no had no additional hemoptysis after holding his Eliquis and initiating treatment for pneumonia with ceftriaxone and azithromycin. Etiology of hemoptysis and infiltrates include: infection (bacterial, fungal, AFB and viral), cancer, vasculitis. Agree with holding eliquis for now. Agree with ceftriaxone and azithromycin as no risk factors for resistant organisms. Follow bacterial cultures, will send sputum, will send histo and blasto studies, quantiferon gold pending, COVID negtive, Flu swab negative. Echo to evaluate valves/endocarditis this morning. He is a never smoke. No weight loss. Will need to follow CT scan in future. Extended autoimmune panel, ANCA, RF for CTDS/vasculitis is pending. 06/10 Ready for discharge from my perspective. Continued treatment for pneumonia with change to Amoxicillin clavulanate 875/125 Q 12 hours for another [address] scan of chest without contrast on 07/20. Follow up in pulmonary clinic week of 07/27. I gave him our business card with phone number. Discussed with hospitalist. (2) Pulmonary embolism: Qualifiers: Pulmonary embolism type: single subsegmental (without acute cor pulmonale) Qualified Code(s): I26.93 - Single subsegmental pulmonary embolism without acute cor pulmonale Code(s): I26.99 - Other pulmonary embolism without acute cor pulmonale Status: Acute Assessment and Plan: Patient with unprovoked DVT and sister with a history of DVT on oral contraceptives and grandmother. Patient has had negative factor 5 and prothrombin [id number] mutations. Patient's MTHFR are genotype is not associated with DVT formation. I will send lupus anticoagulant, anticardiolipin, beta 2 glycoprotein levels, protein C, protein S, and a 3 level antithrombin 3 levels and homocystine level looking for alternative explanations of his unprovoked DVT. Currently the patient has no PE or no DVT On his Dopplers performed 06/09/2019. 3 Patient with no additional hemoptysis. I recommend indefinite anticoagulation given family history of DVT and unprovoked DVT/PE. Awaiting hypercoaguable work up. Would restart eliquis 5 mg PO BID on 06/13. Instructed patient to return to ED if he has hemoptysis. Subjective Date/time seen: 06/10/20 08:30 Interval history: 06/09 Narrative: This is a new consult for hemoptysis. This is a 49-year-old male with a history of hypertension and DVT on 10/04/2019 with PE on 10/16/2019 initially treated with warfarin and then switched to Eliquis in February of 2020. Patient had a repeat CT scan of the chest on 01/30/2020 with no PE. Patient had repeat right lower extremity Dopplers which were positive for DVT on 02/10/2020, 03/23/2020, and 04/21/2020. Patient was seen by a picture painter and his factor 5 mutation was negative on 02/07/2020, on 10/17/2019 is MTHFR genotype was performed and he had 2 copies of [id number] which is not associated with increased thrombus formation and on 02/07/2020 he had a T19863D analysis which was not detected. Of note patient has a younger sister who developed a right lower extremity DVT at age 45. Patient has a mother and father who are alive without clotting issues. Patient has a healthy 19-year-old daughter who has had no clotting issues. Patient states that he is a never smoker. Patient was exposed to secondhand smoke from his father but none since then. Patient denies of a pink. Patient denies smoking marijuana, cocaine, heroin, methamphetamine. 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 06/09 Patient was in his usual state of health on 06/08 with no respiratory limitations or symp
[2020-06-10] MEDS: ROSUVASTATIN 10 MG TABLET 20 MG PO (09:51)
[2020-06-10] MEDS: CHOLECALCIFEROL 1,000 UNITS TABLET 2000 UNITS PO (09:51)
[2020-06-10] MEDS: amLODIPine BESYLATE 5 MG TABLET PO (09:52)
[2020-06-10] MEDS: LOSARTAN POTASSIUM 100 MG TABLET PO (09:52)
[2020-06-10 14:00] VITALS: BP 140/83; PULSE 74; RESP 16; TEMP 36.6; O2SAT 100
--- NOTE | 2020-06-10 15:23 | PM.DS ---
DS: Admitting Diagnosis Admitting Diagnosis Admitting Diagnosis: Hemoptysis DS: Discharge Diagnosis Discharge Diagnosis (1) Pneumonia: Qualifiers: Laterality: bilateral Lung location: unspecified part of lung Pneumonia type: due to unspecified organism Qualified Code(s): J18.9 - Pneumonia, unspecified organism Code(s): J18.9 - Pneumonia, unspecified organism Status: Acute Assessment and Plan: CT and symptoms consistent with PNA -Pulmonology recommended augmentin 875Q12 x 12 days with repeat imaging next month -resistant pathogens seem less likely -TB, HIV, influenza, and COVID-19 negative -pulmonology is going to follow him in the office for the rest of his pending tests -patient is feeling great and on room air with no hemoptysis (2) Hemoptysis: Code(s): R04.2 - Hemoptysis Status: Acute Assessment and Plan: Likely due to above? -restart eliquis on monday. educated to return to ED if bleeding reoccurs. f/u with hematology outpt (3) Essential hypertension: Code(s): I10 - Essential (primary) hypertension Status: Acute Assessment and Plan: Last blood pressure 140/83 -continue home amlodipine and losartan (4) DVT of lower extremity (deep venous thrombosis): Qualifiers: Affected thrombotic vein of extremity: other lower extremity vein Chronicity: acute Laterality: left Qualified Code(s): I82.492 - Acute embolism and thrombosis of other specified deep vein of left lower extremity Code(s): I82.409 - Acute embolism and thrombosis of unspecified deep veins of unspecified lower extremity Status: Acute Assessment and Plan: u/s of LE shows no DVT -sounds like he may have a family history and he has some workup in the chart for genetic causes (5) Dyslipidemia: Code(s): E78.5 - Hyperlipidemia, unspecified Status: Acute Assessment and Plan: Continue with Crestor. DS: Summary Hospital Course Hospital Course: Pt is a 49 y/o male with a history of DVT/PE on Eliquis who presented to the ED on 06/08/20 for hemoptysis. Vitals in the ER were temperature 36.2? C, pulse 78, respiratory rate 16, blood pressure 166/114, pulse ox 100 on room air. Initial hemoglobin normal at 15.5, white blood cell count 6.9, platelets 287. BMP showed slightly high creatinine 1.4 but otherwise looked okay. CTA of the chest abdomen pelvis showed no pulmonary emboli but did show nodules and ground-glass opacities in the lower lobes and right middle lobe including cavitary nodules. The differential included pneumonia, septic emboli, less likely metastatic disease or vasculitis. Patient was admitted to the hospitalist service and observed. He underwent Doppler study which showed no DVT. His Eliquis was put on hold and pulmonology saw him. Restarted on antibiotics for pneumonia. He had no further hemoptysis. TB, COVID-19 and HIV was ruled out. Many other labs were drawn and are pending. The plan is to hold the Eliquis for 4 more days and then restart. He is to come back to emergency room or call his primary care physician if he starts having more hemoptysis. There also going to do a repeat CT in a month to ensure that it improved. If not, the floor nurse may do a bronchoscopy or further investigation. The day of discharge the patient felt back to baseline and was ready to go. He was educated about the worrisome signs and symptoms come back to emergency room for and was discharged stable condition. Status at Discharge Functional status at discharge: independent ambulation Overall status at discharge: patient is back to baseline Time Spent with Patient Time attestation: Total time spent providing and/or coordinating discharge services: 36 min Time spent: Greater than 30 minutes Exam Narrative: Exam Narrative: General: Well developed well nourished patient in NAD HEENT: normocephalic Neck: supple Neuro: Alert and orie
[2020-06-11 01:57] LABS: NIL 0.01 IU/mL; Quantiferon TB Plus, 1T NEGATIVE (NEGATIVE); TB1-NIL 0.01 IU/mL; TB2-NIL 0.01 IU/mL
[2020-06-11 11:01] LABS: Protein S Antigen, Free 112 % normal (57-171)
[2020-06-11 14:55] LABS: Protein C Antigen 105 % (70-140)
[2020-06-11 18:58] LABS: Anti Cardio Antibody IgM <12 MPL (<=12); Anti Cardiolipin Antibody IgA <11 APL (<=11); Anti Cardiolipin Antibody IgG <14 GPL (<=14)
[2020-06-12 03:40] LABS: Lupus dRVVT 1:1 Mix Interpreta Not Indicated; Lupus dRVVT Screen 35 sec (<=45); PTT-LA Screen 34 sec (<=40)
[2020-06-12 05:17] LABS: Antithrombin III Activity 55 % normal (80-135)
[2020-06-12 21:45] LABS: Factor VIII Activity 122 % normal (50-180)
[2020-06-13 13:01] LABS: Blastomyces Antibody Negative (Negative)
[2020-06-13 16:41] LABS: ANA Cascade Screen Negative (Negative)
[2020-06-14 12:31] LABS: ANCA Screen Negative (Negative)
[2020-06-15 06:14] LABS: Homocysteine 11.8 umol/L (<11.4)
--- NOTE | 2020-06-19 08:40 | PC.NURSE ---
Protein C nml TB lupus is negative Antithrombin is negative Factor 5 is WNL VIII- negative 1x- nml Anticardio- negative
== END 2020-06-10 16:00 | disposition home or self-care (01) ==
LOC: ANHED 13:43 → ANH3MEDSUR 17:29
PROVIDERS: Internal Medicine Pulmonary Disease; Nurse Practitioner; Physician Assistant; Admitting Provider Family Medicine; Emergency Provider Emergency Medicine; PCP Emergency Medicine; Visit Provider Internal Medicine
DX: J18.9 Pneumonia, unspecified organism (principal); R04.2 Hemoptysis; E78.5 Hyperlipidemia, unspecified; I11.9 Hypertensive heart disease without heart failure; I50.9 Heart failure, unspecified; Z86.718 Personal history of other venous thrombosis and embolism; Z86.711 Personal history of pulmonary embolism; Z79.01 Long term (current) use of anticoagulants
CPT/HCPCS: 36415; 71275; 74177; 80053; 81241; 83090; 83735; 84484; 85025; 85240; 85250; 85300; 85302; 85306; 85610; 85613; 85652; 85730; 86021; 86038; 86140; 86146; 86147; 86430; 86480; 86612; 86703; 87040; 87385; 87804; 93306; 93970; 96365; 96366; 96367; 96375; 99285; A9270; C9803; G0378; G0432; J0456; J0696; J7030; Q9967; U0003; U0005

== ENCOUNTER → 2020-07-20 08:23 | Outpatient (CLI) | payer OTHER, SELFPAY ==
--- NOTE | ~2020-07-20 | CT_ITS ---
EXAMINATION: CT diagnostic chest wo con DATE: 07/20/2020 08:41 INDICATION: Hemoptysis TECHNIQUE: Computed tomography (CT) of the chest was performed without intravenous contrast. The dose -length product (DLP) was 311.42 mGy-cm. Automated exposure control and iterative reconstruction tech nique were employed. COMPARISON: 06/08/2020 FINDINGS: There are persistent but decreased groundglass opacities of the lower lung zones. Previousl y seen solid and cavitary nodules are no longer identified. There are no new airspace opacities of th e lungs. There is no pleural effusion or pneumothorax. No pathologically enlarged thoracic lymph node s are identified. The heart size is normal. Calcified coronary artery atherosclerosis is noted. Calci fied pulmonary nodules and calcified left hilar lymph nodes are consistent with old granulomatous dis ease. The gallbladder is surgically absent. IMPRESSION: 1. Persistent but decreased groundglass opacities of the lower lung zones and resolved solid and cavi tary nodules, consistent with resolving infection/inflammation. Reviewed, dictated and finalized at location B. IMPRESSION: 1. Persistent but decreased groundglass opacities of the lower lung zones and r esolved solid and cavitary nodules, consistent with resolving infection/inflamm ation.
== END ==
PROVIDERS: Visit Provider Physician Assistant
DX: R04.2 Hemoptysis (principal); R91.8 Other nonspecific abnormal finding of lung field
CPT/HCPCS: 71250

== ENCOUNTER 2020-08-03 14:57 | Outpatient (CLI) | payer OTHER, SELFPAY ==
[2020-08-03 16:31] LABS: Free T4 Free Thyroxine 0.72 ng/mL (0.78-2.19)
== END 2020-08-03 14:58 | disposition home or self-care (01) ==
LOC: ANHLAB 14:59
PROVIDERS: PCP Emergency Medicine; Visit Provider Internal Medicine Pulmonary Disease
DX: R53.83 Other fatigue (principal)
CPT/HCPCS: 36415; 84439; 84443

== ENCOUNTER 2020-08-19 09:41 | Outpatient (CLI) | payer OTHER, SELFPAY ==
--- NOTE | 2020-08-19 16:51 | WPDPFTINT ---
PFT Procedure Performed PFT Procedure Performed Spirometry with Pre/Post Bronchodilator Plethysmography (Lung Vol) Diffusing Cap (DLCO) Flow Vol Loop PFT Interpretation This is a pulmonary function test with pre and post-bronchodilator spirometry, plethysmography and diffusing capacity. The test was performed and results interpreted in accordance with the 2019 and 2005 ATS/ERS Task Force guidelines respectively using the Global Lung Function Initiative-2012 reference equations. Patient demonstrated good effort and cooperation. Reproducibility criteria were met. The quality of the pre bronchodilator spirometry maneuver was Grade A and post bronchodilator spirometry maneuver was Grade A. Findings: Spirometry: The contour of the inspiratory and expiratory flow tracing are normal. The pre bronchodilator FVC is 3.91 L, 81% predicted. The pre bronchodilator FEV1 is 3.06 L, 80% predicted. The FEV1: FVC ratio was 78%. The post bronchodilator FVC is 4.06 L representing a 4% increase. The post bronchodilator FEV1 is 3.28 L, representing a 7% increase. Plethysmography: The total lung capacity is 5.76 L, 86% predicted. The functional residual capacity is 2.58 L, 75% predicted. The residual volume is 1.67 L, 86% predicted. Diffusing capacity: The absolute diffusion capacity is 20.1, 66% predicted. The diffusing capacity corrected for alveolar volume is 4.66, 100% predicted. Impression: The spirometry is normal without evidence of an obstructive abnormality. There is no significant improvement after inhaling a single dose of albuterol. The lung volumes are normal. The absolute diffusing capacity is mildly decreased but normalizes when corrected for alveolar volume. There are no prior studies for comparison
== END 2020-08-19 09:42 | disposition home or self-care (01) ==
PROVIDERS: PCP Emergency Medicine; Visit Provider Internal Medicine Pulmonary Disease
DX: R06.00 Dyspnea, unspecified (principal)
CPT/HCPCS: 94060; 94726; 94729

== ENCOUNTER 2020-10-27 14:31 | Emergency (ER) | payer OTHER, SELFPAY ==
--- NOTE | ~2020-10-27 | US_ITS ---
EXAMINATION: US venous doppler LE RT DATE: 10/27/2020 15:48 INDICATION: Right lower limb swelling TECHNIQUE: Castellon scale images without and with compression and Doppler images of the right lower extre mity veins were obtained. COMPARISON: 04/21/2020 FINDINGS: There is thrombus of the right popliteal, posterior tibial, and peroneal veins. The right c ommon femoral vein, profunda femoral vein, femoral vein, and greater saphenous vein are patent. IMPRESSION: 1. Thrombosis of the right popliteal, posterior tibial, and peroneal veins. These findings were discussed with Dr. Araceli Herron MD in the Emergency Department at 1551 hour s on 10/27/2020. Reviewed, dictated and finalized at location B. IMPRESSION: 1. Thrombosis of the right popliteal, posterior tibial, and peroneal veins. These findings were discussed with Dr. Araceli Herron MD in the Emergency D epartment at 1551 hours on 10/27/2020.
[2020-10-27 14:54] VITALS: BP 135/99; PULSE 67; RESP 20; TEMP 36.9; O2SAT 97
[2020-10-27] MEDS: ACETAMINOPHEN 325 MG TABLET 650 MG PO (15:52)
[2020-10-27 15:56] LABS: Basophils Absolute Auto 0.04 K/mm3 (0.00-0.10); Basophils Percent Auto 0.7 % (0.0-1.0); Eosinophils Absolute Auto 0.16 K/mm3 (0.02-0.50); Hematocrit 45.8 % (40.0-54.0); Hemoglobin 15.1 g/dL (14.0-18.0); Immature Granulocyte Absolute 0.01 K/mm3 (0.00-0.00); Immature Granulocyte Percent A 0.2 % (0.0-0.0); Lymphocytes Absolute Auto 1.44 K/mm3 (1.10-4.50); Mean Corpuscular Hemoglobin 28.1 pg (27.0-31.0); Mean Corpuscular Volume 85.1 fL (78.0-102.0); Mean Platelet Volume 10.3 fl (8.7-11.0); Monocytes Absolute Auto 0.44 K/mm3 (0.10-0.90); Monocytes Percent Auto 8.2 % (2.0-11.0); Neutrophils Absolute Auto 3.3 K/mm3 (1.7-7.2); Neutrophils Percent Auto 60.9 % (50.0-70.0); Platelet Count Result 268 K/mm3 (150-420); Red Blood Count 5.38 M/mm3 (4.70-6.10); Red Cell Distribution Width 12.2 % (11.6-14.4); White Blood Count 5.3 K/mm3 (4.8-10.8)
[2020-10-27 16:10] LABS: Alanine Aminotransferase 59 U/L (16-63); Albumin Level 4.3 g/dL (3.4-5.0); Alkaline Phosphatase 65 U/L (46-116); Anion Gap 7 mmol/L (8-16); Aspartate Amino Transferase 25 U/L (15-37); Bilirubin,Total 0.5 mg/dL (0.00-1.00); Blood Urea Nitrogen 16 mg/dL (7-18); Calcium 9.2 mg/dL (8.5-10.1); Carbon Dioxide 31 mmol/L (21-32); Chloride 104 mmol/L (98-108); Estimated CRCL calculation 53 ml/min; Estimated Glomerular Filt Rate 49; Glucose 124 mg/dL (70-99); Osmolality Calculated 296 mOsm/kg (285-295); Sodium 142 mmol/L (136-145); Total Protein 7.3 g/dL (6.4-8.2)
--- NOTE | 2020-10-27 16:57 | ED.LOWEXIN ---
HPI - Extremity Injury (Lower) General Chief Complaint: Extremity Injury, Lower Stated Complaint: Possible blood clot Time Seen by Provider: 10/27/20 14:56 Source: patient and RN notes reviewed Mode of arrival: ambulatory Limitations: no limitations History of Present Illness HPI Narrative: Right calf pain x 3 days. prior DVT, pt is on Jose RAUSCH complaint: leg injury Onset (ago): day(s) (3) Injury: Right: hip, pelvis, thigh, knee, ankle, foot and toes Place: home Severity: mild Relieving factors: nothing Exacerbating factors: movement Associated symptoms: ambulatory Related Data Allergies Allergy/AdvReac Type Severity Reaction Status Date / Time clopidogrel Allergy Unknown Unknown Verified 08/03/20 14:16 CLOPIDOGREL BISULFATE Allergy Unknown Unknown Uncoded 08/03/20 14:16 Review of Systems Review of Systems: All systems reviewed & are unremarkable except as noted in HPI and below Constitutional: Constitutional: Reports as per HPI and Reports no additional constitutional complaints Eyes: Eyes: Reports as per HPI and Reports no additional eye complaints ENT: Reports system reviewed and no additional complaints, except as documented and Reports as per HPI Cardiovascular: Cardiovascular: Reports as per HPI and Reports no additional cardiovascular complaints Respiratory: Respiratory: Reports as per HPI and Reports no additional respiratory complaints Gastrointestinal: Gastrointestinal: Reports as per HPI and Reports no additional gastrointestinal complaints Genitourinary: Genitourinary: Reports no additional male genitourinary complaints and Reports as per HPI Musculoskeletal: Musculoskeletal: Reports no additional musculoskeletal complaints and Reports as per HPI Comments: right calf pain Integumentary/Breasts: Skin/Breast: Reports system reviewed and no additional complaints, except as docu and Reports as per HPI Neurologic: Reports system reviewed and no additional complaints, except as documented and Reports as per HPI Psychiatric: Psychiatric: Reports no additional psychiatric complaints and Reports as per HPI Endocrine: Endocrine: Reports no additional endocrine complaints and Reports as per HPI Hematologic/Lymphatic: Hematologic/Lymphatic: Reports no additional hematologic/lymphatic complaints and Reports as per HPI Allergic/Immunologic: Allergic/Immunologic: Reports no additional allergic/immunologic complaints and Reports as per HPI REPLACED BY [facility] Past Medical History Medical History Closed displaced fracture of distal phalanx of lesser toe of left foot Closed nondisplaced fracture of distal phalanx of left great toe DVT of lower extremity (deep venous thrombosis) Dyslipidemia Encounter for screening for cardiovascular disorders Hypertension Pulmonary embolism Systolic congestive heart failure Vitamin D deficiency disease Surgical History Surgical History History of tonsillectomy Hx of cholecystectomy Family History Family History Sibling DVT (deep venous thrombosis) Father Diabetes mellitus Other Family history of malignant neoplasm of skin Social History Social History Social History: The patient is and has a significant other. 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 The patient no longer drinks alcohol since he was started on blood thinners. The patient does not use any marijuana or illicit drugs. The patient is a full code. He has 1 biological child and stepchild. The patient does not have a durable power state attorney but wishes to be a full code. Smoking status: Never smoker Alcohol intake: current Drinks per week: 3 Substance use: never Gender identity (if verbalized by the patient): Male Spiritual care concerns: No Exam Cons
[2020-10-27] MEDS: ENOXAPARIN 100 MG/ML SYRINGE SUB-Q (17:25)
[2020-10-27 17:30] VITALS: BP 133/104; PULSE 63; RESP 20; TEMP 36.6; O2SAT 99
[2020-10-27] MEDS: ENOXAPARIN 60 MG/0.6 ML SYRINGE 35 MG SUB-Q (17:32)
== END 2020-10-27 17:32 | disposition home or self-care (01) ==
PROVIDERS: Emergency Provider Emergency Medicine; PCP Emergency Medicine
DX: I82.431 Acute embolism and thrombosis of right popliteal vein (principal)
CPT/HCPCS: 36415; 80053; 85025; 93971; 96372; 99283; 99284; A9270; J1650

== ENCOUNTER 2020-10-30 10:51 | Outpatient (CLI) | payer OTHER, SELFPAY ==
--- NOTE | ~2020-10-30 | US_ITS ---
EXAMINATION: US venous doppler [facility] DATE: 10/30/2020 11:26 INDICATION: Left lower limb pain TECHNIQUE: Castellon scale images without and with compression and Doppler images of the left lower extrem ity veins were obtained. COMPARISON: 06/08/2020 FINDINGS: The left common femoral vein, profunda femoral vein, femoral vein, popliteal vein, peroneal trunk, posterior tibial veins, and greater saphenous vein are patent. IMPRESSION: 1. Patent left lower extremity veins. No evidence of deep venous thrombosis. Reviewed, dictated and finalized at location B.
== END 2020-10-30 10:52 | disposition home or self-care (01) ==
LOC: ANHIMG 10:58
PROVIDERS: PCP Emergency Medicine; Visit Provider Physician Assistant
DX: M79.605 Pain in left leg (principal)
CPT/HCPCS: 93971

== ENCOUNTER 2021-01-27 11:56 | Emergency (ER) | payer OTHER, SELFPAY ==
--- NOTE | ~2021-01-27 | US_ITS ---
EXAMINATION: US venous doppler [facility] DATE: 01/27/2021 13:31 INDICATION: Left lower limb pain. TECHNIQUE: Grayscale ultrasound images without and with compression and Doppler ultrasound images of the left lower extremity veins were obtained. COMPARISON: None. FINDINGS: The visualized portions of left common femoral vein, profunda (deep) femoral vein, femoral vein, popl iteal vein, peroneal veins, posterior tibial veins, and greater saphenous vein outflow are patent. Th ere is a 4.4 x 1.0 x 2.3 cm hypoechoic mass medial to the tibia. IMPRESSION: 1. No deep venous thrombosis. 2. 4.4 x 1.0 x 2.3 cm mass medial to the tibia, most likely a hematoma. Reviewed, dictated and finalized at location A.
[2021-01-27 11:58] VITALS: BP 155/91; PULSE 84; RESP 20; TEMP 36.7; O2SAT 100
[2021-01-27 13:48] LABS: Basophils Percent Auto 0.6 % (0.2-1.2); Eosinophils Absolute Auto 0.1 K/mm3 (0-0.3); Eosinophils Percent Auto 1.9 % (0-4.4); Hemoglobin 13.5 g/dL (14.0-18.0); Immature Granulocyte Absolute 0.02 K/mm3 (0.00-0.031); Immature Granulocyte Percent A 0.3 % (0-0.5); Lymphocytes Absolute Auto 1.52 K/mm3 (0.9-3.2); Mean Corpuscular HGB Conc 32.9 g/dl (32-36); Mean Corpuscular Hemoglobin 29.6 pg (26-34); Mean Corpuscular Volume 89.9 fl (80-100); Mean Platelet Volume 9.9 fl (7.4-10.4); Monocytes Absolute Auto 0.6 K/mm3 (0.1-0.6); Monocytes Percent Auto 8.7 % (2.6-8.5); Neutrophils Absolute Auto 4.6 K/mm3 (1.3-6.7); Neutrophils Percent Auto 66.5 % (45.5-73.1); Platelet Count Result 250 k/mm3 (150-375); Red Blood Count 4.56 M/mm3 (4.6-6.20); Red Cell Distribution Width 13.6 % (11.5-14.5); White Blood Count 6.9 K/mm3 (4.5-10.0)
--- NOTE | 2021-01-27 13:48 | PC.NURSE ---
no change in status waiting lab results
[2021-01-27 14:01] LABS: Anion Gap 7 mmol/L (8-16); Blood Urea Nitrogen 17 mg/dL (9-20); Calcium 9.1 mg/dL (8.4-10.2); Carbon Dioxide 30 mmol/L (22-30); Chloride 100 mmol/L (98-107); Estimated CRCL calculation 51 ml/min; Estimated Glomerular Filt Rate 58; Glucose 98 mg/dL (65-110); Potassium 4.1 mmol/L (3.4-5.0); Sodium 137 mmol/L (137-145)
--- NOTE | 2021-01-27 14:03 | ED.GENADULT ---
HPI - General Adult General Chief complaint: Extremity Problem,Nontraumatic <Shravan Machuca PA-C - Last Filed: 01/27/21 14:06> Stated complaint: leg pain <Shravan Machuca PA-C - Last Filed: 01/27/21 14:06> Time Seen by Provider: 01/27/21 12:16 <Shravan Machuca PA-C - Last Filed: 01/27/21 14:06> Source: patient and RN notes reviewed <Shravan Machuca PA-C - Last Filed: 01/27/21 14:06> Mode of arrival: ambulatory <EDDI Garcia Last Filed: 01/27/21 14:06> Limitations: no limitations <Shravan Machuca PA-C - Last Filed: 01/27/21 14:06> History of Present Illness HPI narrative: Patient is a 50-year-old male who presents with left anterior leg pain over the daly where he is swelling and tenderness patient denies injury or trauma areas been present for 1 day patient denies any similar occurrence in the past had concern for DVT given history of DVT not currently on anticoagulation presents nondistressed <Shravan Machuca PA-C - Last Filed: 01/27/21 14:06> Related Data Allergies/adverse reactions: Allergies Allergy/AdvReac Type Severity Reaction Status Date / Time clopidogrel Allergy Unknown Unknown Verified 12/08/20 10:49 CLOPIDOGREL BISULFATE Allergy Unknown Unknown Uncoded 10/30/20 09:53 <Shravan Machuca PA-C - Last Filed: 01/27/21 14:06> Review of Systems Review of Systems: All systems reviewed & are unremarkable except as noted in HPI and below <Shravan Machuca PA-C - Last Filed: 01/27/21 14:06> [facility] Past Medical History Medical History: Medical History Closed displaced fracture of distal phalanx of lesser toe of left foot Closed nondisplaced fracture of distal phalanx of left great toe DVT of lower extremity (deep venous thrombosis) Dyslipidemia Encounter for screening for cardiovascular disorders Hypertension Pulmonary embolism Systolic congestive heart failure Vitamin D deficiency disease <EDDI Garcia Last Filed: 01/27/21 14:06> Surgical History Surgical History: Surgical History History of tonsillectomy Hx of cholecystectomy <Shravan Machuca PA-C - Last Filed: 01/27/21 14:06> Family History Family History: Family History Sibling DVT (deep venous thrombosis) Father Diabetes mellitus Other Family history of malignant neoplasm of skin <Shravan Machuca PA-C - Last Filed: 01/27/21 14:06> Social History Social History: Social History Social History: The patient is and has a significant other. 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 The patient no longer drinks alcohol since he was started on blood thinners. The patient does not use any marijuana or illicit drugs. The patient is a full code. He has 1 biological child and stepchild. The patient does not have a durable power divorce attorney but wishes to be a full code. Smoking status: Never smoker Alcohol intake: current Drinks per week: 3 Substance use: never Gender identity (if verbalized by the patient): Male Sexual Orientation (if Verbalized by the Patient): Straight or Heterosexual Spiritual care concerns: No <Shravan Machuca PA-C - Last Filed: 01/27/21 14:06> Exam Narrative: GENERAL: Well-appearing, well-nourished, and in no acute distress. HEAD: Normocephalic, atraumatic. EYES: PERRLA and EOMI. ENT: Nares clear, no rhinorrhea or epistaxis. Mucous membranes moist. CHEST: Clear to auscultation. No respiratory distress. No wheezes rales or rhonchi HEART: Regular rate and rhythm. No murmur heard. Normal peripheral pulses. EXTREMITIES: Normal range of motion. No edema. Tenderness of the anterior left daly area measures approximately 3 cm in diameter there is no erythema fl
== END 2021-01-27 14:13 | disposition home or self-care (01) ==
PROVIDERS: Emergency Medicine Emergency Medical Services; Emergency Provider General Practice; PCP Emergency Medicine
DX: M79.662 Pain in left lower leg (principal); E78.5 Hyperlipidemia, unspecified; I10 Essential (primary) hypertension
CPT/HCPCS: 36415; 80048; 85025; 93971; 99284

== ENCOUNTER 2021-02-02 10:09 | Outpatient (CLI) | payer OTHER, SELFPAY ==
--- NOTE | ~2021-02-02 | XR_ITS ---
EXAMINATION: XR ankle LT min 3V EXAM DATE: 02/02/2021 10:24 INDICATION: bruising, swelling, edema -started in lower leg . TECHNIQUE: Left ankle frontal, lateral and oblique projections obtained and reviewed. Correlation is made to left foot examination 09/25/2015. FINDINGS: The left ankle mortise appears intact. There are no acute fractures or dislocations ident ified. There is no subcutaneous gas. The soft tissue is unremarkable. There are no radiopaque for eign bodies. Small inferior calcaneal spur. IMPRESSION: 1. Unremarkable left ankle exam. Reviewed, dictated and finalized at location B.
== END 2021-02-02 10:10 | disposition home or self-care (01) ==
LOC: CHSIMG 10:10
PROVIDERS: PCP Emergency Medicine; Visit Provider Emergency Medicine
DX: R60.9 Edema, unspecified (principal); R52 Pain, unspecified
CPT/HCPCS: 73610

== ENCOUNTER 2021-03-08 10:15 | Outpatient (CLI) | payer OTHER, SELFPAY ==
[2021-03-08 10:46] LABS: D Dimer 0.35 mg/L (0.19-0.50)
== END 2021-03-08 10:16 | disposition home or self-care (01) ==
LOC: CHSLAB 10:18
PROVIDERS: PCP Emergency Medicine
DX: I82.431 Acute embolism and thrombosis of right popliteal vein (principal)
CPT/HCPCS: 36415; 85380

== ENCOUNTER 2021-03-12 10:17 | Outpatient (CLI) | payer OTHER, SELFPAY ==
--- NOTE | ~2021-03-12 | US_ITS ---
EXAMINATION: US venous doppler LE RT DATE: 03/12/2021 10:32 INDICATION: Right lower limb pain. TECHNIQUE: Grayscale ultrasound images without and with compression and Doppler ultrasound images of the right lower extremity veins were obtained. COMPARISON: Ultrasound 10/27/2020 FINDINGS: The visualized portions of right common femoral vein, profunda (deep) femoral vein, femoral vein, pop liteal vein, peroneal veins, posterior tibial veins, and greater saphenous vein outflow are patent. IMPRESSION: 1. No deep venous thrombosis. Reviewed, dictated and finalized at location A. [employer]
== END 2021-03-12 10:18 | disposition home or self-care (01) ==
LOC: CHSIMG 10:18
PROVIDERS: PCP Emergency Medicine; Visit Provider Emergency Medicine
DX: I82.431 Acute embolism and thrombosis of right popliteal vein (principal); I82.401 Acute embolism and thrombosis of unspecified deep veins of right lower extremity; R52 Pain, unspecified
CPT/HCPCS: 93971

== ENCOUNTER 2021-06-18 13:40 | Outpatient (CLI) | payer OTHER, SELFPAY ==
--- NOTE | ~2021-06-18 | US_ITS ---
EXAMINATION: US venous doppler LE RT DATE: 06/18/2021 13:58 INDICATION: Right lower limb pain TECHNIQUE: Castellon scale images without and with compression and Doppler images of the right lower extre mity veins were obtained. COMPARISON: 03/12/2021 FINDINGS: The right common femoral vein, profunda femoral vein, femoral vein, popliteal vein, peronea l trunk, posterior tibial veins, and greater saphenous vein are patent. IMPRESSION: 1. Patent right lower extremity veins. No evidence of deep venous thrombosis. Reviewed, dictated and finalized at location B. TION ADVISOR
== END 2021-06-18 13:41 | disposition home or self-care (01) ==
LOC: CHSIMG 13:41
PROVIDERS: PCP Emergency Medicine; Visit Provider Emergency Medicine
DX: M79.604 Pain in right leg (principal); Z86.718 Personal history of other venous thrombosis and embolism
CPT/HCPCS: 93971

== ENCOUNTER 2021-06-23 11:01 | Outpatient (CLI) | payer OTHER, SELFPAY ==
--- NOTE | ~2021-06-23 | XR_ITS ---
XR knee RT 2V 06/23/2021 11:34 Indication: Medial knee pain Procedure: 2 views of the right knee Comparison: 08/27/2005 Findings: No fracture, subluxation or dislocation. There is anatomic alignment. No significant joint effusion. No foreign bodies. Impression: 1: No significant bone or joint abnormality. Reviewed, dictated and finalized at location B. Impression: 1: No significant bone or joint abnormality.
[2021-06-23 12:14] LABS: Prostate Specific Antigen 0.7 ng/mL (< OR = 4.0)
== END 2021-06-23 11:02 | disposition home or self-care (01) ==
LOC: CHSLAB 11:02
PROVIDERS: PCP Emergency Medicine; Visit Provider Emergency Medicine
DX: M25.561 Pain in right knee (principal); Z12.5 Encounter for screening for malignant neoplasm of prostate
CPT/HCPCS: 36415; 73560; 84153; G0103

== ENCOUNTER 2021-07-08 08:45 | Outpatient (CLI) | payer OTHER, SELFPAY ==
--- NOTE | ~2021-07-08 | US_ITS ---
EXAMINATION: US venous doppler LE RT DATE: 07/08/2021 09:12 INDICATION: Right lower limb pain and swelling TECHNIQUE: Grayscale ultrasound images without and with compression and Doppler ultrasound images of the right lower extremity veins were obtained. COMPARISON: 06/18/2021 FINDINGS: The visualized portions of right common femoral vein, profunda (deep) femoral vein, femoral vein, pop liteal vein, peroneal trunk, posterior tibial veins, peroneal veins, gastrocnemius vein and greater s aphenous vein outflow are patent. IMPRESSION: 1. No deep venous thrombosis in the right lower limb. Reviewed, dictated and finalized at location A.
[2021-07-08 10:33] LABS: D Dimer < 0.22 ug/mL (<0.48)
== END 2021-07-08 08:46 | disposition home or self-care (01) ==
PROVIDERS: PCP Emergency Medicine
DX: I82.431 Acute embolism and thrombosis of right popliteal vein (principal); M79.604 Pain in right leg; M79.89 Other specified soft tissue disorders
CPT/HCPCS: 36415; 85380; 93971

== ENCOUNTER 2021-09-28 09:43 | Outpatient (CLI) | payer OTHER, SELFPAY ==
--- NOTE | ~2021-09-28 | MR_ITS ---
EXAMINATION: MR knee RT wo con DATE: 09/28/2021 10:28 INDICATION: Right knee pain TECHNIQUE: Magnetic resonance imaging (MRI) of the right knee was performed without intravenous contr ast. Sequences included coronal PD-weighted FSE, coronal PD-weighted FS FSE, sagittal T2-weighted FS E, sagittal PD-weighted FS FSE and axial PD weighted fat saturated FSE. COMPARISON: None. FINDINGS: Medial compartment: Medial meniscus is normal. Small region of deep chondral fissuring with subtle underlying cortical ir regularity and minimal edema-like signal change at the anterior weightbearing medial femoral condyle. Remaining cartilage in the medial compartment is normal. Lateral compartment: Lateral meniscus is normal. Articular cartilage is normal. Patellofemoral compartment: Partial-thickness chondral fissuring at the inferior half of the trochlear groove with prominent suba rticular edema-like signal change. Patellar cartilage is normal. Ligaments and tendons: Anterior and posterior cruciate ligaments are normal. The fibular collateral ligament complex is norm al. Mild thickening of the proximal medial collateral ligament without increased signal or surroundin g edema likely mild scarring related to chronic sprain. The extensor mechanism is normal. The visuali zed medial and lateral hamstring tendons as well as the iliotibial band are normal. Fluid: Physiologic amount of fluid in the joint space. No loose osteochondral bodies identified. Osseous/other: Normal marrow signal aside from the previous noted small regions of subarticular edema-like signal ch chanel. No fracture or abnormal marrow replacing process. IMPRESSION: 1. 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 Reviewed, dictated and finalized at location B. IMPRESSION: 1. 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
== END 2021-09-28 09:44 | disposition home or self-care (01) ==
LOC: CHSIMG 09:44
PROVIDERS: PCP Emergency Medicine; Visit Provider Emergency Medicine
DX: M79.604 Pain in right leg (principal); R53.1 Weakness
CPT/HCPCS: 73721

== ENCOUNTER 2022-02-08 07:25 | Outpatient (CLI) | payer OTHER, SELFPAY ==
--- NOTE | ~2022-02-08 | US_ITS ---
EXAMINATION: US right upper quadrant DATE: 02/08/2022 08:13 INDICATION: Right upper quadrant abdominal pain. TECHNIQUE: Multiple grayscale and Doppler ultrasound images of the abdomen were obtained. COMPARISON: CT abdomen and pelvis 06/08/2020 FINDINGS: The visualized portions of the head and body of the pancreas are normal. The liver is sterling l without focal lesion. There is normal flow in main portal vein. The gallbladder is absent. The comm on duct is normal and measures 5 mm. Right kidney is normal. IMPRESSION: 1. Normal right upper quadrant ultrasound status post cholecystectomy. Reviewed, dictated and finalized at location A.
--- NOTE | ~2022-02-08 | US_ITS ---
EXAMINATION: US soft tissue LE RT DATE: 02/08/2022 10:51 INDICATION: Right calf pain and swelling. TECHNIQUE: Grayscale and Doppler ultrasound images of the right calf were obtained. COMPARISON: None. FINDINGS: No surface to discoloration reported by the technologist. No cystic or solid mass. IMPRESSION: Sonographically normal soft tissue findings in the area of clinical concern in the right calf. Reviewed, dictated and finalized at location K.
== END 2022-02-08 07:26 | disposition home or self-care (01) ==
LOC: CHSIMG 07:26
PROVIDERS: PCP Emergency Medicine; Visit Provider Emergency Medicine
DX: M79.89 Other specified soft tissue disorders (principal); M79.604 Pain in right leg; M79.669 Pain in unspecified lower leg; R22.41 Localized swelling, mass and lump, right lower limb; Z86.718 Personal history of other venous thrombosis and embolism
CPT/HCPCS: 76705; 76882

== ENCOUNTER 2022-05-24 08:00 | Outpatient (NON) | payer OTHER, SELFPAY | END 2022-05-24 08:01 | disposition home or self-care (01) | LOC: ANHLAB 05-25 07:33 | PROVIDERS: PCP Emergency Medicine; Visit Provider Internal Medicine Gastroenterology | DX: Z12.11 Encounter for screening for malignant neoplasm of colon (principal) | CPT/HCPCS: 88305 ==

== ENCOUNTER 2022-05-24 10:03 | Day surgery (SDC) | payer OTHER, SELFPAY ==
[2022-05-11 09:42] VITALS: BMI 29.6
[2022-05-24 10:45] VITALS: BP 160/115; PULSE 90; RESP 16; TEMP 36.4; O2SAT 100
[2022-05-24] MEDS: LACTATED RINGERS 1,000 ML 150 ML IV CONT (11:12)
--- NOTE | 2022-05-24 11:12 | WPDANESEPPF ---
Anes - Initial Pre Proc Eval Procedure: Operation Date: 05/24/22 12:00 Proposed Procedures p Screening Colonoscopy - Chau Talley MD Date/Time: 05/24/22 11:12 Surgeon: Chau Talley MD Pre Op Diagnosis: Neoplasm Screening Patient Data Age: 51 Gender: M Height: 1.75 m Weight: 84.6 kg Allergies Allergy/AdvReac Type Severity Reaction Status Date / Time clopidogrel Allergy Unknown Unknown Verified 02/02/22 13:08 Home Medications Medication Instructions Recorded Confirmed Type aspirin 81 mg tablet,delayed 81 mg PO DAILY #90 tabs 05/11/20 05/24/22 Rx release cholecalciferol (vitamin D3) 50 2,000 unit PO DAILY #90 tabs 05/11/20 05/24/22 Rx mcg (2,000 unit) tablet (D3 DOTS) cyclobenzaprine 10 mg tablet 10 mg PO QHS PRN muscle spasm #14 10/30/20 05/24/22 Rx tabs naproxen 500 mg tablet 500 mg PO BID PRN pain #20 tabs 06/23/21 05/24/22 Rx amlodipine 5 mg tablet (Norvasc) 5 mg PO DAILY #90 tabs 07/27/21 05/24/22 Rx hydrochlorothiazide 25 mg tablet 25 mg PO DAILY #90 tabs 07/27/21 05/24/22 Rx losartan 100 mg tablet 100 mg PO DAILY #90 tabs 07/27/21 05/24/22 Rx rosuvastatin 20 mg tablet 20 mg PO DAILY #90 tabs 07/27/21 05/24/22 Rx Patient hx anesthesia problems: none Family hx anesthesia problems: none Results Review: All pre-operative results and documents have been reviewed as part of the pre-operative evaluation. [facility] Past Medical History Medical History Closed displaced fracture of distal phalanx of lesser toe of left foot Closed nondisplaced fracture of distal phalanx of left great toe DVT of lower extremity (deep venous thrombosis) Dyslipidemia Encounter for screening for cardiovascular disorders Hypertension Pulmonary embolism Systolic congestive heart failure Vitamin D deficiency disease Surgical History Surgical History History of tonsillectomy Hx of cholecystectomy Family History Family History Sibling DVT (deep venous thrombosis) Father Diabetes mellitus Other Family history of malignant neoplasm of skin Social History Social History Social History: The patient is and has a significant other. 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 The patient no longer drinks alcohol since he was started on blood thinners. The patient does not use any marijuana or illicit drugs. The patient is a full code. He has 1 biological child and stepchild. The patient does not have a durable power associate attorney but wishes to be a full code. Smoking status: Never smoker Alcohol intake: current Drinks per week: 3 Alcohol use details: socially Substance use: never Substance use type: does not use Living arrangements: alone Gender identity (if verbalized by the patient): Male Sexual Orientation (if Verbalized by the Patient): Straight or Heterosexual Spiritual care concerns: No Anes - Eval Final PreProcedure Day of Procedure 05/24/22 11:12 Patient weight: overweight Heart: regular rate and rhythm Lungs: clear to auscultation Airway: Mallampati scale class II Neurological: alert and oriented Last oral intake: >/= 8 hours ASA classification: II Emergent: no Anesthetic plan: proceed Anesthesia type and monitoring: general GIVS and standard monitoring Results Review: All pre-operative results and documents have been reviewed as part of the pre-operative evaluation. Informed Consent: The patient's anesthetic plan and its attendant risks and benefits were discussed with the patient/family/POA. Questions were solicited and answers provided to the satisfaction of the patient/family/POA.
--- NOTE | 2022-05-24 11:37 | PM.HPGS ---
History of Present Illness History of Present Illness Consent: Risks, benefits, and alternatives have been discussed and questions answered. Patient agrees to proceed with procedure. Chief complaint: Neoplasm Screening Narrative: Dakota Richardson is a 51 year old male here for first screening colonoscopy Review of Systems Constitutional: Constitutional: Denies headache(s) and Denies weakness Eyes: Eyes: Denies blurry vision ENT: Reports Normal hearing present, Denies headache(s) and Denies neck pain Cardiovascular: Cardiovascular: Denies chest pain and Denies dyspnea Respiratory: Respiratory: Denies dyspnea Gastrointestinal: Gastrointestinal: Reports no additional gastrointestinal complaints Genitourinary: Genitourinary: Denies dysuria Musculoskeletal: Musculoskeletal: Denies neck pain Integumentary/Breasts: Skin/Breast: Denies dry skin Neurologic: Reports Normal hearing present, Denies headache(s) and Denies weakness Psychiatric: Psychiatric: Denies anxiety Endocrine: Endocrine: Denies change in body appearance Hematologic/Lymphatic: Hematologic/Lymphatic: Denies easy bleeding Allergic/Immunologic: Allergic/Immunologic: Denies urticaria PMF Past Medical History Medical History Closed displaced fracture of distal phalanx of lesser toe of left foot Closed nondisplaced fracture of distal phalanx of left great toe DVT of lower extremity (deep venous thrombosis) Dyslipidemia Encounter for screening for cardiovascular disorders Hypertension Pulmonary embolism Systolic congestive heart failure Vitamin D deficiency disease Surgical History Surgical History History of tonsillectomy Hx of cholecystectomy Family History Family History Sibling DVT (deep venous thrombosis) Father Diabetes mellitus Other Family history of malignant neoplasm of skin Social History Social History Social History: The patient is and has a significant other. 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 The patient no longer drinks alcohol since he was started on blood thinners. The patient does not use any marijuana or illicit drugs. The patient is a full code. He has 1 biological child and stepchild. The patient does not have a durable power securities attorney but wishes to be a full code. Smoking status: Never smoker Alcohol intake: current Drinks per week: 3 Alcohol use details: socially Substance use: never Substance use type: does not use Living arrangements: alone Gender identity (if verbalized by the patient): Male Sexual Orientation (if Verbalized by the Patient): Straight or Heterosexual Spiritual care concerns: No Meds Home Medications and Allergies Home Medications Medication Instructions Recorded Confirmed Type aspirin 81 mg tablet,delayed 81 mg PO DAILY #90 tabs 05/11/20 05/24/22 Rx release cholecalciferol (vitamin D3) 50 2,000 unit PO DAILY #90 tabs 05/11/20 05/24/22 Rx mcg (2,000 unit) tablet (D3 DOTS) cyclobenzaprine 10 mg tablet 10 mg PO QHS PRN muscle spasm #14 10/30/20 05/24/22 Rx tabs naproxen 500 mg tablet 500 mg PO BID PRN pain #20 tabs 06/23/21 05/24/22 Rx amlodipine 5 mg tablet (Norvasc) 5 mg PO DAILY #90 tabs 07/27/21 05/24/22 Rx hydrochlorothiazide 25 mg tablet 25 mg PO DAILY #90 tabs 07/27/21 05/24/22 Rx losartan 100 mg tablet 100 mg PO DAILY #90 tabs 07/27/21 05/24/22 Rx rosuvastatin 20 mg tablet 20 mg PO DAILY #90 tabs 07/27/21 05/24/22 Rx Allergies Allergy/AdvReac Type Severity Reaction Status Date / Time clopidogrel Allergy Unknown Unknown Verified 02/02/22 13:08 Vital Signs Vital Signs - 24 hr 05/24/22 10:45 Temperature 97.5 F L Pulse Rate 90 Respiratory Rate 16 Blood Pressure 160/115 H Pulse Oximetry 10
[2022-05-24 12:03] VITALS: BP 144/96; PULSE 82; RESP 16; O2SAT 99
[2022-05-24 12:13] VITALS: BP 141/100; PULSE 61; RESP 18; O2SAT 99
--- NOTE | 2022-05-24 12:20 | WPDANESPN ---
Anes - Prog Note Post-Op Date/Time: 05/24/22 12:20 Cardiovascular status: normal Respiratory status: normal Airway patency: baseline Mental status: baseline Post-Op hydration status: normal Vital Signs: Last Vital Signs Temp 36.4 C L 05/24/22 10:45 Pulse 82 05/24/22 12:03 Resp 16 05/24/22 12:03 BP 144/96 H 05/24/22 12:03 Pulse Ox 99 05/24/22 12:03 O2 Del Method Room Air 05/24/22 12:03 Pain Score (VAS): 0/10 Patient Feedback: Patient satisfied with anesthetic care.
[2022-05-24 12:23] VITALS: BP 144/100; PULSE 67; RESP 16; O2SAT 100
--- NOTE | 2022-05-24 12:25 | SUR.PHASEII ---
PT AWAKE AND ALERT. DENIES PAIN. EATING AND DRINKING. INSTRUCTED PT AND GF TO FOLLOW UP WITH PCP REGARDING HIGH BP AND NOT SKIP BLOOD PRESSURE MEDICATION. GF VERBALIZED UNDERSTANDING.
--- NOTE | 2022-05-24 12:38 | SUR.PHASEII ---
25; DR GATES NOTIFIED OF BP REMAINING AT 140S/100. OK TO GO HOME. PT TO TAKE DAILY MEDICATIONS TODAY.
== END 2022-05-24 12:41 | disposition home or self-care (01) ==
PROVIDERS: PCP Emergency Medicine; Visit Provider Internal Medicine Gastroenterology
PROC: 0DJD8ZZ Inspection of Lower Intestinal Tract, Via Natural or Artificial Opening Endoscopic (ICD-10-PCS; CPT 45378; principal; 2022-05-24 12:00)
DX: Z12.11 Encounter for screening for malignant neoplasm of colon (principal)
CPT/HCPCS: 45380

== ENCOUNTER 2022-06-03 09:07 | Outpatient (CLI) | payer OTHER, SELFPAY ==
[2022-06-03 09:23] LABS: Hematocrit 47.5 % (40.0-54.0); Hemoglobin 15.7 g/dL (14.0-18.0); Mean Corpuscular HGB Conc 33.1 g/dL (32.0-36.0); Mean Corpuscular Volume 87.6 fL (78.0-102.0); Mean Platelet Volume 9.6 fl (8.7-11.0); Platelet Count Result 320 K/mm3 (150-420); Red Blood Count 5.42 M/mm3 (4.70-6.10); Red Cell Distribution Width 12.5 % (11.6-14.4)
[2022-06-03 09:34] LABS: Hemoglobin A1C 5.8 % (<5.7)
[2022-06-03 10:08] LABS: Alanine Aminotransferase 37 U/L (16-63); Albumin Level 4.5 g/dL (3.4-5.0); Alkaline Phosphatase 57 U/L (46-116); Anion Gap 7 mmol/L (8-16); Aspartate Amino Transferase 20 U/L (15-37); Bilirubin,Total 0.7 mg/dL (0.00-1.00); Blood Urea Nitrogen 23 mg/dL (7-18); Calcium 9.4 mg/dL (8.5-10.1); Carbon Dioxide 32 mmol/L (21-32); Chloride 100 mmol/L (98-108); Cholesterol 124 mg/dL (0-200); Estimated Glomerular Filt Rate 54; Glucose 113 mg/dL (70-99); HDL Direct 66 mg/dL (40-60); LDL Cholesterol Calculated 48 mg/dL (<130); Osmolality Calculated 292 mOsm/kg (285-295); Potassium 4.4 mmol/L (3.5-5.1); Prostate Specific Antigen 0.6 ng/mL (< OR = 4.0); Sodium 139 mmol/L (136-145); Thyroid Stimulating Hormone 2.15 uIU/mL (0.36-3.74); Total Protein 7.4 g/dL (6.4-8.2); Triglycerides 49 mg/dL (0-150)
[2022-06-07 12:18] LABS: Vitamin D 1,25 (OH)2 Total 25 pg/mL (18-72); Vitamin D2 1,25 (OH)2 <8 pg/mL; Vitamin D3 1,25 (OH)2 25 pg/mL
== END 2022-06-03 09:08 | disposition home or self-care (01) ==
LOC: CHSLAB 09:09
PROVIDERS: PCP Emergency Medicine; Visit Provider Emergency Medicine
DX: Z12.5 Encounter for screening for malignant neoplasm of prostate (principal); R53.83 Other fatigue; I10 Essential (primary) hypertension; E55.9 Vitamin D deficiency, unspecified; Z13.220 Encounter for screening for lipoid disorders
CPT/HCPCS: 36415; 80053; 80061; 82652; 83036; 84153; 84443; 85027; G0103

== ENCOUNTER 2022-06-07 15:17 | Outpatient (CLI) | payer OTHER, SELFPAY ==
--- NOTE | ~2022-06-07 | CT_ITS ---
EXAMINATION: CT brain wo con DATE: 06/07/2022 15:42 INDICATION: Headache lasting longer than one week. TECHNIQUE: Computed tomography (CT) of the head was performed without intravenous contrast. The mA wa s adjusted according to patient size. Iterative reconstruction technique was employed. The dose-lengt h product was 605.33 mGy-cm. COMPARISON: Head CT 12/30/2019 FINDINGS: There is no intracranial hemorrhage, acute infarction, or abnormal intracranial mass lesion . The ventricles are normal in size. There is mild mucosal thickening in the paranasal sinuses. The o rbits are normal. The mastoid air cells are normal. IMPRESSION: 1. Normal brain. Reviewed, dictated and finalized at location A. LY SPECIALIST IMPRESSION: 1. Normal brain.
--- NOTE | ~2022-06-07 | XR_ITS ---
EXAMINATION: XR chest 1V 06/07/2022 15:41 INDICATION: Headaches for 1 1/2 weeks. Fever and chills. PROCEDURE: PA view of the chest COMPARISON: 09/01/2011 FINDINGS: The lungs are clear. The cardiomediastinal silhouette is within normal limits. There are no pleural effusions. There is no pneumothorax suspected. IMPRESSION: 1: NO ACUTE CARDIOPULMONARY DISEASE. Reviewed, dictated and finalized at location L. PARKER
== END 2022-06-07 15:18 | disposition home or self-care (01) ==
LOC: CHSIMG 15:19
PROVIDERS: PCP Emergency Medicine; Visit Provider Emergency Medicine
DX: I50.21 Acute systolic (congestive) heart failure (principal); R07.9 Chest pain, unspecified; R51.9 Headache, unspecified
CPT/HCPCS: 70450; 71045

== ENCOUNTER 2022-09-02 10:33 | Outpatient (CLI) | payer OTHER, SELFPAY ==
--- NOTE | ~2022-09-02 | US_ITS ---
EXAMINATION:US venous doppler LE RT INDICATION:Right leg edema and swelling TECHNIQUE: Multiple grayscale, color flow and Doppler images of the lower extremity deep venous syste ms were obtained and reviewed. COMPARISON:No prior studies for comparison. FINDINGS: The common femoral, superficial femoral and popliteal veins demonstrate normal respiratory variation, augmentation and compressibility. Color flow is also seen within the posterior tibial, pe roneal, greater saphenous and profunda veins. Venous reflux is present in the posterior tibial vein. IMPRESSION: 1: No lower extremity deep venous thrombosis. Reviewed, dictated and finalized at location B.
== END 2022-09-02 10:34 | disposition home or self-care (01) ==
LOC: CHSIMG 10:35
PROVIDERS: PCP Emergency Medicine; Visit Provider Emergency Medicine
DX: R60.9 Edema, unspecified (principal)
CPT/HCPCS: 93971

== ENCOUNTER 2022-12-02 07:55 | Outpatient (CLI) | payer OTHER, SELFPAY ==
--- NOTE | ~2022-12-02 | US_ITS ---
EXAMINATION:US venous doppler LE RT INDICATION:Acute pulmonary embolism. TECHNIQUE: Multiple grayscale, color flow and Doppler images of the right lower extremity deep venous systems were obtained and reviewed. COMPARISON:09/02/2022 FINDINGS: The common femoral and superficial femoral veins demonstrate normal respiratory variation, augmentation and compressibility. Color flow is also seen within the posterior tibial peroneal, grea ter saphenous and profunda veins. There appears to be deep venous thrombosis of one of 2 right poplit eal veins, most likely chronic DVT. Findings will be communicated to Dr. Poole's office. Fax report also sent to the physician. IMPRESSION: 1: Deep venous thrombosis of one of 2 right popliteal veins, likely chronic. Reviewed, dictated and finalized at location B.
--- NOTE | ~2022-12-02 | CT_ITS ---
EXAMINATION: CT thoracic spine wo con DATE: 12/02/2022 08:17 INDICATION: Mid thoracic pain. Hemoptysis. TECHNIQUE: Computed tomography (CT) of the thoracic spine was performed without intravenous contrast. Automated exposure control and iterative reconstruction technique were employed. The dose-length pro duct was 807.00 mGy-cm. COMPARISON: Chest CT 07/20/2020 FINDINGS: Calcified left hilar lymph nodes are consistent with old granulomatous disease. There is 7 degrees levocurvature of upper thoracic spine. There is mild chronic anterior wedging of C7, T8, T9 v ertebral bodies. There is mildly decreased disc height from T2-T3 through T10-T11. There is multileve l mild to moderate facet joint osteoarthritis. On the right, there is mild neural foraminal stenosis at T4-T5, T6-T7, T7-T8, and T9-T10. On the left, there is mild neural foraminal stenosis at T9-T10 an d T10-T11. There is mild central canal stenosis at T10-T11. IMPRESSION: 1. Mild thoracic spondylosis. Reviewed, dictated and finalized at location A.
== END 2022-12-02 07:56 | disposition home or self-care (01) ==
LOC: CHSIMG 07:56
PROVIDERS: PCP Emergency Medicine; Visit Provider Emergency Medicine
DX: R04.2 Hemoptysis (principal); I82.431 Acute embolism and thrombosis of right popliteal vein; M43.04 Spondylolysis, thoracic region
CPT/HCPCS: 72128; 93971

== ENCOUNTER 2022-12-22 06:49 | Outpatient (CLI) | payer OTHER, SELFPAY ==
--- NOTE | ~2022-12-22 | MR_ITS ---
EXAMINATION: MR knee RT wo con DATE: 12/22/2022 07:39 INDICATION: Right knee injury and sprain. TECHNIQUE: Magnetic resonance imaging (MRI) of the right knee was performed without intravenous contr ast. Sequences included axial PD-weighted FS FSE, coronal PD-weighted FSE and PD-weighted FS FSE, sag ittal PD-weighted FSE, and sagittal T2-weighted FS FSE. COMPARISON: Right knee MRI 09/28/2021, radiographs 06/23/2021 FINDINGS: Medial compartment: Medial meniscus is normal. There is cartilage surface irregularity of femoral condyle involving the c entral articular surface. Tibial cartilage is normal. Lateral compartment: Lateral meniscus is normal. Lateral compartment cartilage is normal. Patellofemoral compartment: Patellar cartilage is normal. There is cartilage surface irregularity of central trochlea with mild s ubchondral edema-like signal intensity. Ligaments and tendons: The anterior and posterior cruciate ligaments are normal. There is a partial tear of medial collatera l ligament with surrounding edema. There are changes of prior sprain of fibular collateral ligament c haracterized increased signal intensity proximally. There is mild patellar tendinopathy. Fluid: There is a small knee joint effusion. IMPRESSION: 1. Acute partial tear of medial collateral ligament. 2. Mild chondrosis of medial and patellofemoral compartments. 3. Small knee joint effusion. Reviewed, dictated and finalized at location A.
== END 2022-12-22 06:50 | disposition home or self-care (01) ==
LOC: CHSIMG 06:50
PROVIDERS: PCP Emergency Medicine; Visit Provider Emergency Medicine
DX: R93.6 Abnormal findings on diagnostic imaging of limbs (principal); M79.604 Pain in right leg; S83.411A Sprain of medial collateral ligament of right knee, initial encounter; M22.2X1 Patellofemoral disorders, right knee; M25.461 Effusion, right knee
CPT/HCPCS: 73721

== ENCOUNTER 2023-02-25 07:55 | Emergency (ER) | payer OTHER, SELFPAY ==
--- NOTE | ~2023-02-25 | XR_ITS ---
EXAMINATION: XR foot LT min 3V DATE: 02/25/2023 08:27 INDICATION: Left foot injury and pain and swelling. TECHNIQUE: 4 views of left foot were obtained. COMPARISON: None. FINDINGS: Bone alignment is normal. No fracture. There is flattening of head of second metatarsal, co nsistent with osteonecrosis (Freiberg's infraction). There is mild osteoarthritis of first metatarsop halangeal joint. There is an enthesophyte at plantar aspect of calcaneal tuberosity. IMPRESSION: 1. Mild osteoarthritis of first metatarsophalangeal joint. Reviewed, dictated and finalized at location A. E LDR
--- NOTE | ~2023-02-25 | XR_ITS ---
EXAMINATION: XR ankle LT min 3V DATE: 02/25/2023 08:28 INDICATION: Left ankle pain and swelling. TECHNIQUE: 4 views of left ankle were obtained. COMPARISON: None. FINDINGS: Bone alignment is normal. No fracture. Joint spaces are normal. There is an enthesophyte at plantar aspect of calcaneal tuberosity. There is ankle soft tissue swelling. IMPRESSION: 1. No fracture. Reviewed, dictated and finalized at location A. [employer] IMPRESSION: 1. No fracture.
[2023-02-25 08:02] VITALS: BP 151/99; PULSE 73; RESP 12; TEMP 36.4; O2SAT 100
--- NOTE | 2023-02-25 08:04 | ED.LOWEXIN ---
HPI - Extremity Injury (Lower) General Chief Complaint: Extremity Injury, Lower Stated Complaint: left ankle injury Time Seen by Provider: 02/25/23 08:03 Source: patient Mode of arrival: ambulatory Limitations: no limitations History of Present Illness HPI Narrative: 52-year-old male with a history of hypertension, DVT/ PE, right MCL tear presents to the ER with -- left ankle pain. He twisted his ankle while hunting. Unable to bear weight. No other injuries noted. MD complaint: ankle injury Onset (ago): day(s) ( One day ago) Injury: Left: ankle Type of Injury: inversion Place: street/outdoors Severity: severe Relieving factors: nothing Exacerbating factors: movement Other symptoms: none Related Data Allergies Allergy/AdvReac Type Severity Reaction Status Date / Time clopidogrel Allergy Unknown Unknown Verified 02/25/23 08:02 Review of Systems Review of Systems: All systems reviewed & are unremarkable except as noted in HPI and below Constitutional: Constitutional: Reports as per HPI and Reports no additional constitutional complaints Eyes: Eyes: Reports as per HPI and Reports no additional eye complaints ENT: Reports system reviewed and no additional complaints, except as documented and Reports as per HPI Cardiovascular: Cardiovascular: Reports as per HPI and Reports no additional cardiovascular complaints Respiratory: Respiratory: Reports as per HPI and Reports no additional respiratory complaints Gastrointestinal: Gastrointestinal: Reports as per HPI and Reports no additional gastrointestinal complaints Genitourinary: Genitourinary: Reports no additional male genitourinary complaints and Reports as per HPI Musculoskeletal: Musculoskeletal: Reports no additional musculoskeletal complaints and Reports as per HPI Comments: left ankle pain right knee pain from MCL tear Integumentary/Breasts: Skin/Breast: Reports system reviewed and no additional complaints, except as docu and Reports as per HPI Neurologic: Reports system reviewed and no additional complaints, except as documented and Reports as per HPI Psychiatric: Psychiatric: Reports no additional psychiatric complaints and Reports as per HPI Endocrine: Endocrine: Reports no additional endocrine complaints and Reports as per HPI Hematologic/Lymphatic: Hematologic/Lymphatic: Reports no additional hematologic/lymphatic complaints and Reports as per HPI Allergic/Immunologic: Allergic/Immunologic: Reports no additional allergic/immunologic complaints and Reports as per HPI PMFSH Past Medical History Medical History Closed displaced fracture of distal phalanx of lesser toe of left foot Closed nondisplaced fracture of distal phalanx of left great toe DVT of lower extremity (deep venous thrombosis) Dyslipidemia Encounter for screening for cardiovascular disorders Hemoptysis Hypertension MCL sprain of right knee December 2022 Pulmonary embolism Systolic congestive heart failure Vitamin D deficiency disease Surgical History Surgical History History of tonsillectomy Hx of cholecystectomy Family History Family History Sibling DVT (deep venous thrombosis) Father Diabetes mellitus Other Family history of malignant neoplasm of skin Social History Social History Social History: The patient is and has a significant other. 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 The patient no longer drinks alcohol since he was started on blood thinners. The patient does not use any marijuana or illicit drugs. The patient is a full code. He has 1 biological child and stepchild. The patient does not have a durable power associate attorney but wishes to be a full code. Smoking status: Never smoker Alcohol intake
[2023-02-25] MEDS: KETOROLAC 30 MG/ML VIAL (*BKC) IM (08:22)
[2023-02-25 09:19] VITALS: TEMP 36.6
[2023-02-25 09:22] VITALS: BP 130/92; PULSE 63; RESP 12; TEMP 36.6; O2SAT 97
== END 2023-02-25 09:25 | disposition home or self-care (01) ==
PROVIDERS: Emergency Provider Internal Medicine Critical Care Medicine; PCP Emergency Medicine
DX: S93.412A Sprain of calcaneofibular ligament of left ankle, initial encounter (principal); I11.0 Hypertensive heart disease with heart failure; I50.20 Unspecified systolic (congestive) heart failure; Z86.718 Personal history of other venous thrombosis and embolism; X50.0XXA Overexertion from strenuous movement or load, initial encounter
CPT/HCPCS: 29515; 73610; 73630; 96372; 99283; J1885; L4350

== ENCOUNTER 2023-03-25 07:31 | Outpatient (CLI) | payer OTHER, SELFPAY ==
--- NOTE | ~2023-03-25 | MR_ITS ---
MRI of the left ankle Clinical history: Pain, injury Technique: Coronal proton-density and proton-density fat-sat images, axial proton-density and proton- density fat-sat images, and sagittal proton-density and proton-density fat-sat images were acquired. Findings: Syndesmotic ligaments are intact. Anterior and posterior talofibular ligaments are intact. There is probable thickening and poor definition of the calcaneofibular ligament. Deltoid ligament is intact. Medial flexor tendons, anterior extensor tendons, and peroneus longus tendon are intact. There is salvador gitudinal split tear of the peroneus brevis tendon at the level of the tip of the lateral malleolus e xtending towards the peroneal tubercle of the calcaneus. Achilles tendon is intact. There is no osteochondral lesion of the talar dome. There is small subtalar joint effusion. Bone mick ow signals are unremarkable. Plantar fascia is intact. Normal signal preserved in the sinus Tarsi. No soft tissue mass or fluid co llection evident. There is minimal subcutaneous soft tissue edema, especially anterolaterally. Impression: Longitudinal split tear of the peroneus brevis tendon, as detailed above. Probable sprain of the calcaneofibular ligament. Reviewed, dictated and finalized at location . 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 Probable sprain of the calcaneofibular ligament.
== END 2023-03-25 07:32 | disposition home or self-care (01) ==
LOC: CHSIMG 07:32
PROVIDERS: PCP Emergency Medicine; Visit Provider Emergency Medicine
DX: M25.572 Pain in left ankle and joints of left foot (principal); S86.312A Strain of muscle(s) and tendon(s) of peroneal muscle group at lower leg level, left leg, initial encounter
CPT/HCPCS: 73721

== ENCOUNTER 2023-05-05 09:07 | Outpatient (CLI) | payer OTHER, SELFPAY ==
--- NOTE | ~2023-05-05 | XR_ITS ---
XR ankle LT min 3V 05/05/2023 09:21 INDICATION: Left ankle pain PROCEDURE: 3 views left ankle COMPARISON: 02/26/2020 FINDINGS: Fracture, dislocation or subluxation is not identified. Is a degenerative calcaneal entheso phyte. The soft tissues appear within normal limits. No foreign bodies are identified. IMPRESSION: 1: NO ACUTE BONE OR JOINT ABNORMALITY IDENTIFIED. Reviewed, dictated and finalized at location B. 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
== END 2023-05-05 09:08 | disposition home or self-care (01) ==
LOC: CHSIMG 09:09
PROVIDERS: PCP Emergency Medicine; Visit Provider Orthopaedic Surgery
DX: M25.572 Pain in left ankle and joints of left foot (principal)
CPT/HCPCS: 73610